=== PATIENT | female | born 1960 | race Caucasian/White ===

== ENCOUNTER 2020-11-25 13:59 | Emergency (ER) | payer OTHER, SELFPAY ==
[2020-11-25 14:11] VITALS: BP 140/76; PULSE 108; RESP 18; TEMP 36.7; O2SAT 98; BMI 22.1
--- NOTE | 2020-11-25 15:02 | XR_ITS ---
EXAMINATION: XR ribs BI min 4V w CXR1V XR shoulder RT min 2V CLINICAL INFORMATION: Patient status post fall with rib cage pain COMPARISON: Chest radiograph 02/01/[address] chest 02/04/2019. TECHNIQUE: PA chest and AP and oblique views of the bilateral ribs obtained (4 images). Right shoulder 3 views obtained. FINDINGS: CHEST AND RIBS: Acute right rib fractures are seen. These are difficult to accurately localize. The right ninth rib has a mildly displaced lateral rib fracture. Additionally, there appear to be fractures of the right sixth and seventh ribs laterally. No left-sided rib fractures are seen. An ill-defined hazy 2.5 cm nodular opacity is seen in the right mid lung suprahilar region which has a slightly different appearance than the prior chest radiograph 02/01/2019. Additionally, mild subsegmental atelectasis is seen at the right lung base. Trace right pleural effusion. No evidence of pneumothorax. The left lung is clear and the heart is not enlarged. RIGHT SHOULDER: Views of the right shoulder demonstrate degenerative changes in the acromioclavicular joint. The glenohumeral articulation is normal without additional findings. XR/XR ribs BI min 4V w CXR1V IMPRESSION: 1. Several mildly displaced right rib fractures are seen. No pneumothorax. Small right pleural effusion. 2. An ill-defined hazy 2.5 cm nodular opacity in the right mid to upper lung suprahilar region is identified with a slightly different configuration than the prior chest radiograph of 02/01/2019. An elective CT thorax is recommended to reassess this region to exclude underlying pulmonary lesion. 3. Unremarkable right shoulder. This result was discussed via telephone with Katie Klein NP by telephone at 3:53 PM on 11/25/2020 and it was ascertained that the content and urgency of the report was understood at the time of direct communication.
[2020-11-25 19:53] VITALS: BP 140/85; PULSE 91; RESP 16; TEMP 36.8; O2SAT 99
--- NOTE | 2020-11-25 21:48 | ED_ITS ---
HPI - Fall General Chief Complaint: Fall Stated Complaint: fell rib pain Time Seen by Provider: 11/25/20 15:02 Source: patient Mode of arrival: ambulatory Limitations: no limitations History of Present Illness HPI Narrative: Patient presents to ED for right-sided shoulder/lower chest/upper abdominal pain after falling earlier this afternoon. Patient denies hitting head or loss of consciousness. Patient states she tripped while pulling out the garbage and fell onto right side. Patient states he is not on any blood thinners. complaint: fall Related Data Allergies Allergy/AdvReac Type Severity Reaction Status Date / Time codeine [Codeine] Allergy Mild HIVES Verified 11/25/20 22:29 Codeine Phosphate Allergy Unknown vomiting Uncoded 09/30/19 00:00 Review of Systems Review of Systems: Yes all other systems are reviewed and are negative Constitutional: Constitutional: Reports as per HPI and Reports no additional c onstitutional complaints Eyes: Eyes: Reports as per HPI and Reports no additional eye complaints ENT: Reports system reviewed and no additional complaints, except as documented and Reports as per HPI Cardiovascular: Cardiovascular: Reports as per HPI and Reports no additional cardiovascular complaints Comments: Right-sided chest pain Respiratory: Respiratory: Reports as per HPI and Reports no additional respiratory complaints Gastrointestinal: Gastrointestinal: Reports as per HPI, Reports no additional gastrointestinal complaints and Reports abdominal pain (Right upper abdominal pain) Musculoskeletal: Musculoskeletal: Reports no additional musculoskeletal complaints and Reports as per HPI Comments: Right shoulder pain Neurologic: Reports system reviewed and no additional complaints, except as documented and Reports as per HPI Psychiatric: Psychiatric: Reports no additional psychiatric complaints and Reports as per HPI [facility] Social History Social History Alcohol intake: unknown Smoking Status: Unknown if ever smoked Use of substances other than those prescribed or required for medical reasons: No Advance Directives: No Physical Exam Vital Signs: Vital Signs: Last Vital Signs Temp 98.2 F 11/25/20 19:53 Pulse 83 11/25/20 22:05 Resp 109 H 11/25/20 22:05 BP 143/63 H 11/25/20 22:05 Pulse Ox 93 11/25/20 22:05 Body Mass Index 22.1 Const: General: cooperative, healthy appearing, comfortable, no acute distress, well developed, alert, awake and Physically active Orientation/consciousness: patient oriented x3 HENMT: Head: Yes normal to inspection, Yes No palpable skull fracture present, Yes normocephalic and Yes atraumatic Eyes: General: appearance normal, both eyes and all related structures Neck: Neck: Yes normal visual inspection, Yes full ROM, Yes no lymphadenopathy, Yes no meningeal signs, Yes trachea midline, Yes supple and No tender Chest: Other: Positive for right lower chest/rib tenderness on palpation. Chest palpation & inspection: normal inspection of the chest Resp: Other: Patient is speaking in full sentences, but not able to take deep breath due to pain Effort & Inspection: normal respiratory effort and able to speak in complete sentences Auscultation: clear to auscultation bilaterally Cardio: Jugular venous distension: no JVD Heart sounds: S1 normal heart sound present and S2 normal heart sound present GI: Inspection: Yes normal to inspection and No abdominal wall ecchymosis Palpation (GI): not soft, not firm, Tenderness to palpation present (GI) in the RUQ, no guarding and not rigid : General: No CVA tenderness and Yes no CVA tenderness Back/Spine/Pelvis: Back: no CVA tenderness and No CVA tenderness Skin: General skin exam: no rashes or lesions noted and elasticity normal Neuro: General: patient oriented x3, no meningeal signs and CN's II-XI intact bilaterally Cranial nerves: Yes CN's II-XII intact bilaterally Extrem: General: Yes normal to inspection and Yes full ROM Psych: Appearance: grossly normal, well kempt and not disheveled Course Course Course Narrative: Patient x-ray shows multiple right lower rib fractures. Patient O2 saturation is normal, but has significant discomfort and can not take a deep breath. Reevaluation(s) Reevaluation #1: Call [facility] transfer line immediately and spoke with trauma surgeon Dr. Cisneros who recommends patient to be immediately transferred to [facility] ER where they would further evaluate patient. He does not recommend further evaluation in [place] ER. Patient states she has no past allergic reaction to oxycodone and has taken it before in the past. Patient was given oxycodone, Benadryl, and Zofran. Time: 22:02 MDM - Fall MDM Narrative Medical decision making narrative: Multiple right lower rib fractures. Lab Data Labs: Lab Results 11/25/20 Range/Units 22:46 COVID-19 (LUCIANA) Negative (Negative) COVID-19 Clin Com See Note Discharge Plan Discharge Clinical Impression: Fracture, ribs Patient Disposition: [facility] Hospital Interventions: Acute Care Transfer Worksheet (ED) Last Done: 11/25/20 23:36 Discharge Date/Time: 11/25/20 23:38
[2020-11-25 22:05] VITALS: BP 143/63; PULSE 83; RESP 109; O2SAT 93
[2020-11-25] MEDS: oxyCODONE HCl Immed Release 5 MG TABLET PO (22:30)
[2020-11-25] MEDS: diphenhydrAMINE HCL 25 MG TABLET PO (22:42)
[2020-11-25 23:04] LABS: COVID-19 Test Negative (Negative); IDNOW Serial# 9DD0AD1C
--- NOTE | 2020-11-25 23:25 | PC.NURSE ---
Patient swabbed for covid which was neative and line in both anticub with 20g needles. Patient being transferred to [facility] with [facility]
== END 2020-11-25 23:38 | disposition short-term general hospital (02) ==
PROVIDERS: Physician Assistant; Emergency Provider Emergency Medicine; PCP Internal Medicine Medical Oncology
DX: S22.43XA Multiple fractures of ribs, bilateral, initial encounter for closed fracture (principal); R07.81 Pleurodynia; X58.XXXA Exposure to other specified factors, initial encounter; Y93.9 Activity, unspecified; Y92.9 Unspecified place or not applicable; Y99.9 Unspecified external cause status; Z20.828 Contact with and (suspected) exposure to other viral communicable diseases
CPT/HCPCS: 36415; 71111; 73030; 87635; 99285; Q0163

== ENCOUNTER 2020-12-25 12:54 | Outpatient (REF) | payer OTHER, SELFPAY ==
--- NOTE | ~2020-12-25 | PE_ITS ---
EXAMINATION: Fluorine-18 FDG PET/CT Scan CLINICAL INDICATION: Initial treatment management. 2.7 cm pulmonary nodule. PROCEDURE: 71 minutes following the intravenous administration of 14.8 mCi of fluorine 18 FDG, images from the base of the skull to the mid thighs were obtained using a combined PET/CT scanner with CT scan based attenuation correction. No oral contrast was administered. No intravenous contrast was administered. Transverse, coronal, sagittal, and volume reconstruction projections were obtained. The patient's blood glucose as determined by a finger stick, was 82 mg/dl immediately prior to injection. Total CT exam dose-length product 308.74 mGy-cm * These CT images were obtained using dose optimization techniques as appropriate, variously including the following: Automated exposure control * Adjustment of mA and/or kV according to patient size (this includes techniques or standardized protocols for targeted exams where dose is matched to indication/reason for exam; i.e. extremities or head) * Use of iterative reconstruction technique COMPARISON: No previous PET/CT scan is available for comparison. CT scan of the chest dated 02/04/[address] scan of the abdomen and pelvis dated 01/09/2009 are available for comparison. The report of a CT scan of the chest performed at [facility] dated 11/26/2020 is available but the images from that study are not available for review. FINDINGS: (Slice numbers described in this report are numbered superiorly to inferiorly with slice #1 in the head) NECK AND VISUALIZED HEAD: No foci of abnormal FDG activity are noted. The distribution of FDG activity is physiological. There is no cervical lymphadenopathy. There is mild and bilaterally fairly symmetrical FDG activity present in supraclavicular adipose tissues, likely due to physiological brown fat uptake. THORAX: There is an FDG avid right upper lobe pulmonary nodule showing SUVmax 9.1, slice 78/267. This corresponds to a spiculated opacity that measures 2.8 x 1.4 cm in largest transverse dimensions, and approximately 2.6 cm cephalocaudad. No other foci of abnormal FDG activity are present within the chest. Two adjacent anterolateral right upper lobe 0.3 cm right upper lobe nodules are present, too small to be characterized on the FDG PET images. There is a 0.8 x 0.6 cm anterolateral left upper lobe nodule, slice 96/267, also too small to be characterized on the FDG PET images. This is unchanged from 02/04/2019. No additional pulmonary nodules are visualized on these nondiagnostic CT images. No other pulmonary nodules are visualized. There is no pleural or pericardial fluid, or pneumothorax. There is some scarring or atelectasis in the lung bases bilaterally, more prominently on the right. ABDOMEN AND PELVIS: No foci of abnormal FDG activity are present in the abdomen or pelvis. The liver, gallbladder and spleen are unremarkable. There is a fluid density cyst measuring 5.3 cm in largest dimension anteriorly in the lower pole of the left kidney and this is markedly photopenic on the FDG PET images. This cyst was not present on the prior 01/09/2009 CT scan. The kidneys are otherwise unremarkable. The adrenal glands and pancreas are unremarkable. There is diverticulosis without evidence of diverticulitis. There are suture lines are present in the rectosigmoid colon and small bowel loops in the presacral region with no associated abnormal FDG activity. Uterine fibroids with some calcifications are noted. The pelvic organs are otherwise unremarkable. There is no retroperitoneal, mesenteric, pelvic or inguinal lymphadenopathy. MUSCULOSKELETAL: Multiple FDG avid right-sided rib fractures are present. No other foci of abnormal FDG activity are present in the osseous structures. There are degenerative changes in the spine, most severely at the L4-L5 disc space but no suspicious sclerotic or lytic lesions are visualized. VASCULAR: Vascular calcifications are noted. PET/PET CT fusion skull to thigh IMPRESSION: 1. An FDG avid spiculated right upper lobe pulmonary nodule is most likely malignant. 2. Multiple FDG avid right-sided rib fractures are present. 3. No additional abnormalities suspicious for metastatic or other malignant lesions are noted. 4. Large hypodense left renal cyst.
== END 2020-12-25 12:55 | disposition home or self-care (01) ==
LOC: HO.PET 12:54
PROVIDERS: Visit Provider Internal Medicine Medical Oncology
DX: Z13.89 Encounter for screening for other disorder (principal)

== ENCOUNTER → 2020-12-28 10:42 | Outpatient (BNVA) | payer OTHER, SELFPAY | PROVIDERS: PCP Internal Medicine Medical Oncology; Visit Provider Surgery | DX: Z13.89 Encounter for screening for other disorder (principal) | CPT/HCPCS: 99205 ==

== ENCOUNTER 2021-01-01 14:56 | Outpatient (REF) | payer OTHER, SELFPAY | END 2021-01-01 14:57 | disposition home or self-care (01) | LOC: HO.RESP 14:56 | PROVIDERS: Visit Provider Surgery | DX: Z13.89 Encounter for screening for other disorder (principal) ==

== ENCOUNTER 2021-02-06 14:14 | Outpatient (REF) | payer OTHER, SELFPAY | END 2021-02-06 14:15 | disposition home or self-care (01) | LOC: HO.LAB 14:14 | PROVIDERS: Visit Provider Internal Medicine | DX: Z20.822 Contact with and (suspected) exposure to COVID-19 (principal) | CPT/HCPCS: 36415; C9803; U0003; U0005 ==

== ENCOUNTER 2021-07-19 12:06 | Emergency (ER) | payer OTHER, SELFPAY ==
--- NOTE | ~2021-07-19 | CT_ITS ---
EXAMINATION: CT ABDOMEN AND PELVIS WITH CONTRAST CLINICAL INFORMATION: Right flank pain COMPARISON: Previous abdominal ultrasound September [address] of the abdomen and pelvis most recent December 2008 and PET/CT scan December 2020 TECHNIQUE: Multidetector volumetric images were obtained from the superior aspect of the liver through the pubic symphysis following administration 85 mL of Omnipaque 350 intravenous contrast. Sagittal and coronal reformatted images were obtained on the technologist's workstation. Oral contrast: Yes This CT examination was performed using dose optimization techniques as appropriate, variously including the following: *Automated exposure control *Adjustment of mA and/or kV according to patient size (this includes techniques or standardized protocols for targeted exams where dose is matched to indication/reason for exam; i.e. extremities or head) *Use of iterative reconstruction technique DLP: 514 mGy-cm FINDINGS: LUNG BASES: The visualized lung bases are unremarkable. LIVER, GALLBLADDER, AND BILIARY TREE: There may be mild cirrhotic changes of the liver. There is a small central calcification in the liver. No other focal liver lesion is seen. The gallbladder is normal. There is no biliary duct dilatation. PANCREAS: Unremarkable. SPLEEN: Unremarkable. ADRENAL GLANDS: Unremarkable. KIDNEYS AND URETERS: A 6 cm cyst in the upper pole of the left kidney. The kidneys are otherwise normal. BLADDER: Unremarkable. GASTROINTESTINAL TRACT: There are postsurgical changes to the sigmoid colon. There is diverticulosis of the colon. No evidence of diverticulitis is seen. There is an atypical location of a small bowel loops lateral to the left colon. No dilated loops of bowel to suggest obstruction are seen. The appendix is normal. The stomach is not optimally distended. ABDOMINAL WALL: No significant hernia is appreciated. LYMPH NODES: Normal. VASCULAR: There is evidence of atherosclerotic disease. PELVIC VISCERA: Unremarkable. OSSEOUS STRUCTURES: There is a recent appearing left posterior 11th rib fracture. This is new from PET/CT scan December 2020. There is an old partially visualized right posterior ninth rib fracture. There are degenerative changes of the spine. CT/CT abdomen pelvis w con IMPRESSION: No cause of right flank pain seen. Question mild cirrhotic changes of the liver. 6 cm left renal cyst. Diverticulosis of the colon. Postsurgical changes to the sigmoid colon. Recent appearing left posterior 11th rib fracture.
[2021-07-19 12:08] VITALS: BP 149/74; PULSE 114; RESP 22; TEMP 36.6; O2SAT 97; BMI 23.0
[2021-07-19 12:37] LABS: MANUAL DIFF FLAG NO
[2021-07-19 12:43] LABS: Basophils Absolute Auto 0.1 X10*3/uL (0.0-0.2); Basophils Percent Auto 0.8 % (0-2); Eosinophils Absolute Auto 0.1 X10*3/uL (0.0-0.4); Eosinophils Percent Auto 1.1 % (0-4); Hematocrit 46.2 % (37-47); Hemoglobin 16.1 g/dl (12.0-16.0); Imm Gran Abs Auto 0.03 X10*3/uL (0.00-0.03); Imm Gran Pct Auto 0.3 % (0.0-0.4); Lymphocytes Absolute Auto 4.3 X10*3/uL (1.2-4.9); Lymphocytes Percent Auto 42.1 % (20-40); Mean Corpuscular HGB Conc 34.8 g/dl (31.0-35.0); Mean Corpuscular Hemoglobin 36.6 pg (27.0-33.0); Mean Platelet Volume 9.6 fL (9.4-12.3); Monocytes Absolute Auto 0.8 X10*3/uL (0.1-1.2); Monocytes Percent Auto 7.6 % (2-11); Neutrophils Absolute Auto 4.9 X10*3/uL (2.0-8.3); Neutrophils Percent Auto 48.1 % (45-73); Platelet Count 154 X10*3/uL (160-400); Red Cell Distribution Width 11.8 % (11.0-16.0); White Blood Count 10.1 X10*3/uL (4.8-10.8)
--- NOTE | 2021-07-19 12:43 | ED.ABDPAIN ---
HPI - Abdominal Pain General Chief Complaint: Abdominal Pain Stated Complaint: R SIDED ABD PAIN Time Seen by Provider: 07/19/21 12:20 Source: patient Mode of arrival: ambulatory History of Present Illness HPI narrative: 61-year-old female with history of COPD presents with acute onset of sharp/burning pain at the right flank/lower quadrant without associated vomiting, fevers, chills but has had nausea and patient reports a few episodes of diarrhea. Otherwise, she denies any urinary pain/burning/frequency. Related Data Previous Rx's Medication Instructions Recorded pantoprazole 40 mg tablet,delayed 40 mg PO DAILY #30 cap 02/22/21 release cephalexin 500 mg capsule 500 mg PO Q12H 5 Days #10 cap 07/19/21 Allergies Allergy/AdvReac Type Severity Reaction Status Date / Time codeine [Codeine] Allergy Mild HIVES Verified 12/28/20 10:50 Codeine Phosphate Allergy Unknown vomiting Uncoded 09/30/19 00:00 Review of Systems Review of Systems Pertinent positives and negatives as stated in HPI 10 point review of systems otherwise negative. Physical Exam Vital Signs: Vital Signs: Last Vital Signs Temp 97.9 F 07/19/21 12:08 Pulse 94 07/19/21 13:41 Resp 16 07/19/21 13:41 BP 139/76 07/19/21 13:41 Pulse Ox 94 07/19/21 13:41 Body Mass Index 23.0 VITAL SIGNS: Reviewed. GENERAL: Well developed, well nourished, in no acute distress. HEAD: Normocephalic/atraumatic EYES: PERRLA, EOMI OROPHARYNX: no oral lesions noted, posterior pharynx clear LUNGS: Normal breath sounds. No adventitious sounds or accessory muscle use. SpO2<94> CARDIOVASCULAR: Regular rate and rhythm without noted murmurs ABDOMEN: Soft, non-tender, non-distended with bowel sounds. NEUROLOGIC: Alert and oriented x 4. Course Course Course Narrative: 61-year-old female with history and clinical presentation suggestive renal colic, gastroenteritis, UTI. On review of all investigations there are no acute findings other than patient having UTI. She received a script for implementing antibiotics and was instructed to follow up with the primary care provider. MDM - Abdominal Pain Lab Data Result diagrams: 07/19/21 12:33 07/19/21 12:33 Labs: Lab Results 09/02/0307/19/21 07/19/21 Range/Units 12:33 12:33 12:33 WBC 10.1 (4.8-10.8) X10*3/uL RBC 4.40 (4.20-5.50) X10*6/uL Hgb 16.1 H (12.0-16.0) g/dl Hct 46.2 (37-47) % MCV 105.0 H (80-98) fL MCH 36.6 H (27.0-33.0) pg MCHC 34.8 (31.0-35.0) g/dl RDW 11.8 (11.0-16.0) % Plt Count 154 L (160-400) X10*3/uL MPV 9.6 (9.4-12.3) fL Immature Gran % (Auto) 0.3 (0.0-0.4) % Neut % (Auto) 48.1 (45-73) % Lymph % (Auto) 42.1 H (20-40) % [place] % (Auto) 7.6 (2-11) % Eos % (Auto) 1.1 (0-4) % Baso % (Auto) 0.8 (0-2) % Lymph # (Auto) 4.3 (1.2-4.9) X10*3/uL [place] # (Auto) 0.8 (0.1-1.2) X10*3/uL Eos # (Auto) 0.1 (0.0-0.4) X10*3/uL Baso # (Auto) 0.1 (0.0-0.2) X10*3/uL Abs Immat Gran (auto) 0.03 (0.00-0.03) X10*3/uL Absolute Neuts (auto) 4.9 (2.0-8.3) X10*3/uL Absolute Nucleated RBC 0.000 (0.0-0.012) X10*3/uL Nucleated RBC % (auto) 0.0 (0.0-0.2) /100WBC Sodium 140 (135-145) mmol/L Potassium 3.9 (3.3-5.1) mmol/L Chloride 104 (96-108) mmol/L Carbon Dioxide 27 (22-29) mmol/L Anion Gap 13 (12-20) BUN 8 L (9-16) mg/dL Creatinine 0.69 (0.5-1.4) mg/dL Estim Creat Clear Calc 89.4 Estimated GFR > 60 Random Glucose 93 (60-115) mg/dL Lactic Acid 1.1 (0.5-2.0) mmol/L Calcium 10.0 (8.4-10.2) mg/dL Total Bilirubin 0.7 (0.0-1.0) mg/dL AST 36 H (5-31) U/L ALT 23 (0-31) U/L Alkaline Phosphatase 87 (39-117) U/L Total Protein 7.2 (6.5-8.0) g/dL Albumin 4.6 (3.5-5.0) g/dL Lipase 22 (8-78) U/L Urine Color Urine Appearance Urine pH (5.0-8.0) Ur Specific [place] (1.005-1.025) Urine Protein (NEG-TRACE) MG/DL Urine Glucose (UA) (NEG) MG/DL Urine Ketones (NEG) MG/DL Urine Blood (NEG) Urine Nitrite (NEG) Ur Leukocyte Esterase (NEG) Urine RBC (0) /HPF Urine WBC (0-4) /HPF Ur Squamous Epith Cells /LPF Urine Bacteria /LPF 07/19/21 Range/Units 13:00 WBC (4.8-10.8) X10*3/uL RBC (4.20-5.50) X10*6/uL Hgb (12.0-16.0) g/dl Hct (37-47) % MCV (80-98) fL MCH (27.0-33.0) pg MCHC (31.0-35.0) g/dl RDW (11.0-16.0) % Plt Count (160-400) X10*3/uL MPV (9.4-12.3) fL Immature Gran % (Auto) (0.0-0.4) % Neut % (Auto) (45-73) % Lymph % (Auto) (20-40) % [place] % (Auto) (2-11) % Eos % (Auto) (0-4) % Baso % (Auto) (0-2) % Lymph # (Auto) (1.2-4.9) X10*3/uL [place] # (Auto) (0.1-1.2) X10*3/uL Eos # (Auto) (0.0-0.4) X10*3/uL Baso # (Auto) (0.0-0.2) X10*3/uL Abs Immat Gran (auto) (0.00-0.03) X10*3/uL Absolute Neuts (auto) (2.0-8.3) X10*3/uL Absolute Nucleated RBC (0.0-0.012) X10*3/uL Nucleated RBC % (auto) (0.0-0.2) /100WBC Sodium (135-145) mmol/L Potassium (3.3-5.1) mmol/L Chloride (96-108) mmol/L Carbon Dioxide (22-29) mmol/L Anion Gap (12-20) BUN (9-16) mg/dL Creatinine (0.5-1.4) mg/dL Estim Creat Clear Calc Estimated GFR Random Glucose (60-115) mg/dL Lactic Acid (0.5-2.0) mmol/L Calcium (8.4-10.2) mg/dL Total Bilirubin (0.0-1.0) mg/dL AST (5-31) U/L ALT (0-31) U/L Alkaline Phosphatase (39-117) U/L Total Protein (6.5-8.0) g/dL Albumin (3.5-5.0) g/dL Lipase (8-78) U/L Urine Color YELLOW Urine Appearance HAZY Urine pH 6.0 (5.0-8.0) Ur Specific [place] 1.025 (1.005-1.025) Urine Protein NEG (NEG-TRACE) MG/DL Urine Glucose (UA) NEG (NEG) MG/DL Urine Ketones NEG (NEG) MG/DL Urine Blood NEG (NEG) Urine Nitrite NEG (NEG) Ur Leukocyte Esterase TRACE H (NEG) Urine RBC 0-2 (0) /HPF Urine WBC 5-9 H (0-4) /HPF Ur Squamous Epith Cells TRACE /LPF Urine Bacteria TRACE /LPF Discharge Plan Discharge Clinical Impression: UTI (urinary tract infection), Left rib fracture Patient Disposition: Home, Self-Care Instructions: Urinary Tract Infection in Women (ED) Additional Instructions: 1. Complete the entire course of antibiotics. 2. Follow-up with your primary care provider in the next 2-3 days for re-evaluation. Return to the ER for acute worsening of symptoms. Prescriptions: New cephalexin 500 mg capsule 500 mg PO Q12H 5 Days Qty: 10 RF: 0 No Action pantoprazole 40 mg tablet,delayed release (DR/EC) 40 mg PO DAILY Qty: 30 RF: 5 Referrals: Sonido Mcdaniels MD [Primary Care Provider] - 2 days PMF Past Medical History Source: nursing notes reviewed Medical History Lung cancer Social History Social History Alcohol intake: current Alcohol intake frequency: 0-2 drinks per day Patient Tobacco Use Status: Current everyday Tobacco user Use of substances other than those prescribed or required for medical reasons: No Advance Directives: Yes Advance Directives Information Provided: Yes Advance Directives on File: No Patient : No
[2021-07-19 12:57] LABS: Lactic Acid 1.1 mmol/L (0.5-2.0)
[2021-07-19 13:05] LABS: Alanine Aminotransferase 23 U/L (0-31); Albumin Level 4.6 g/dL (3.5-5.0); Alkaline Phosphatase 87 U/L (39-117); Anion Gap 13 (12-20); Aspartate Amino Transferase 36 U/L (5-31); Bilirubin Total 0.7 mg/dL (0.0-1.0); Blood Urea Nitrogen 8 mg/dL (9-16); Carbon Dioxide 27 mmol/L (22-29); Chloride 104 mmol/L (96-108); Creatinine Clr Calc Pharmacy 89.4; Estimated Glomerular Filt Rate > 60; Glucose Random 93 mg/dL (60-115); Lipase 22 U/L (8-78); Potassium 3.9 mmol/L (3.3-5.1); Sodium 140 mmol/L (135-145); Total Protein 7.2 g/dL (6.5-8.0)
[2021-07-19 13:19] LABS: Glucose Urine UA NEG (NEG); Leukocyte Esterase Urine TRACE (NEG); Nitrite Urine NEG (NEG); Specific Gravity - Urine 1.025 (1.005-1.025); UACC Culture Trigger YES; Urine Blood NEG (NEG); Urine Ketones NEG (NEG); Urine Protein NEG (NEG-TRACE)
[2021-07-19 13:23] LABS: Appearance Urine HAZY; Color Urine YELLOW
[2021-07-19 13:41] VITALS: BP 139/76; PULSE 94; RESP 16; O2SAT 94
[2021-07-19 13:46] LABS: Bacteria Urine TRACE /LPF; RBC Urine 0-2 /HPF (0); Squamous Epithelial Cell Urine TRACE /LPF
[2021-07-19] MEDS: iohexoL 350 MG/ML 100 ML INFUS..BTL IV (13:59)
== END 2021-07-19 15:19 | disposition home or self-care (01) ==
PROVIDERS: Emergency Provider Student in an Organized Health Care Education/Training Program; PCP Internal Medicine Medical Oncology
DX: N39.0 Urinary tract infection, site not specified (principal); S22.32XA Fracture of one rib, left side, initial encounter for closed fracture; X58.XXXA Exposure to other specified factors, initial encounter; R10.9 Unspecified abdominal pain; J44.9 Chronic obstructive pulmonary disease, unspecified; F17.210 Nicotine dependence, cigarettes, uncomplicated; Y93.9 Activity, unspecified; Y92.9 Unspecified place or not applicable; Y99.9 Unspecified external cause status; Z85.118 Personal history of other malignant neoplasm of bronchus and lung
CPT/HCPCS: 36415; 74177; 80053; 81001; 83605; 83690; 85025; 87040; 87086; 99284; Q9967

== ENCOUNTER 2021-08-07 10:33 | Outpatient (REF) | payer OTHER, SELFPAY ==
--- NOTE | ~2021-08-07 | CT_ITS ---
EXAMINATION: CT CHEST WITHOUT CONTRAST CLINICAL INFORMATION: COPD. COMPARISON: Previous chest CT scans most recent January 2021 TECHNIQUE: Multidetector volumetric CT imaging of the chest was done. Axial MIP volume rendering provided. Sagittal and coronal reformatted images were obtained. This CT examination was performed using dose optimization techniques as appropriate, variously including the following: *Automated exposure control *Adjustment of mA and/or kV according to patient size (this includes techniques or standardized protocols for targeted exams where dose is matched to indication/reason for exam; i.e. extremities or head) *Use of iterative reconstruction technique DLP: 142 mGy-cm FINDINGS: LUNGS: There is evidence of emphysema. There are postsurgical changes following right upper lobe lobectomy. There is a 7 x 10 mm left upper lobe/lingular nodule axial image 118 series 6. This has increased in size from approximately 6 x 8 mm on previous PET/CT scan December 2020 and increased in size and density from previous chest CT scan January 2019. There is a heterogeneous partially cystic, partially reticular right lower lobe nodule axial image 119 series 6. MEDIASTINUM: There are postsurgical changes to the right pulmonary hilum. No enlarged hilar or mediastinal lymph nodes are seen. The heart does not appear enlarged. There is no pericardial effusion. There is no coronary artery calcification. The thoracic aorta is upper normal in size. PLEURA: There is no pleural effusion. No pleural mass or thickening. AXILLA: No lymphadenopathy. UPPER ABDOMEN: There is question of mild cirrhotic change of the liver. There are small calcifications in the right and left lobes of the liver. There is a 6 cm cyst in the upper pole of the left kidney. OSSEOUS STRUCTURES: There is a recent-appearing left posterior 11th rib fracture. There are old right rib fractures. CT/CT chest wo con IMPRESSION: Postsurgical changes from right upper lobe lobectomy. Increasing lingular nodule measuring 7 x 10 mm suspicious for neoplasm. New 1 cm heterogeneous partially cystic, partially reticular peripheral or subpleural right lower lobe nodule. Recent-appearing left posterior 11th rib fracture. Question mild cirrhotic changes of the liver. Findings will be communicated by the [place] work flow geospatial imagery intelligence analyst Nazanin Mcginnis.
== END 2021-08-07 10:34 | disposition home or self-care (01) ==
LOC: HO.CT 10:33
PROVIDERS: Visit Provider Physician Assistant Medical
DX: R91.8 Other nonspecific abnormal finding of lung field (principal); J44.9 Chronic obstructive pulmonary disease, unspecified
CPT/HCPCS: 71250

== ENCOUNTER → 2021-08-30 10:18 | Outpatient (BNVA) | payer OTHER, SELFPAY | PROVIDERS: PCP Internal Medicine Medical Oncology; Visit Provider Surgery | DX: J44.9 Chronic obstructive pulmonary disease, unspecified (principal); C34.11 Malignant neoplasm of upper lobe, right bronchus or lung; R91.1 Solitary pulmonary nodule; F17.210 Nicotine dependence, cigarettes, uncomplicated; Z79.899 Other long term (current) drug therapy; Z90.2 Acquired absence of lung [part of] | CPT/HCPCS: 99212 ==

== ENCOUNTER → 2021-11-04 14:20 | Outpatient (BNVA) | payer OTHER, SELFPAY | PROVIDERS: PCP Internal Medicine Medical Oncology; Visit Provider Internal Medicine Gastroenterology ==

== ENCOUNTER 2022-04-23 09:48 | Outpatient (REF) | payer OTHER, SELFPAY ==
--- NOTE | ~2022-04-23 | CT_ITS ---
EXAMINATION: CT CHEST WITHOUT CONTRAST CLINICAL INFORMATION: Right upper lobe lung cancer COMPARISON: Previous chest CT most recent July 2021 TECHNIQUE: Multidetector volumetric CT imaging of the chest was done. Axial MIP volume rendering provided. Sagittal and coronal reformatted images were obtained. This CT examination was performed using dose optimization techniques as appropriate, variously including the following: *Automated exposure control *Adjustment of mA and/or kV according to patient size (this includes techniques or standardized protocols for targeted exams where dose is matched to indication/reason for exam; i.e. 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 There are stable postsurgical changes to the right hemithorax post right upper lobe lobectomy. The irregularly-shaped solid left upper lobe nodule 5 x 8 mm axial image 351 series 7 and not appreciably changed in size.. The heterogeneous partially groundglass partially cystic nodule in the left upper lobe adjacent to the fissure axial 282 series 7 is stable. There are innumerable new scattered groundglass attenuation nodules throughout both lungs. The largest is a 7 mm heterogeneous nodule in the left upper lobe axial image 275 series 7. MEDIASTINUM: There are surgical clips in the right hilum. The heart does not appear enlarged. There is no pericardial effusion. Thoracic aorta is upper normal in size. There is no coronary artery calcification. PLEURA: There is no pleural effusion. No pleural mass or thickening. AXILLA: No lymphadenopathy. UPPER ABDOMEN: There is question of a slightly lobular contour of the left lobe of the liver. There is a large left renal cyst measuring 7 cm. OSSEOUS STRUCTURES: There are degenerative changes of the spine. CT/CT chest wo con IMPRESSION: Emphysema. Stable postsurgical changes following right upper lobe lobectomy. Stable solid left upper lobe nodule and heterogeneous partially groundglass partially cystic nodule in the left upper lobe adjacent to the fissure. There are numerous new predominantly groundglass attenuation nodules seen throughout the lungs. Short-term follow-up chest CT following treatment for infection is recommended. Fleischner guidelines were followed.
== END 2022-04-23 09:49 | disposition home or self-care (01) ==
LOC: HO.CT 09:48
PROVIDERS: PCP Internal Medicine Medical Oncology; Visit Provider Surgery
DX: C34.11 Malignant neoplasm of upper lobe, right bronchus or lung (principal)
CPT/HCPCS: 71250

== ENCOUNTER → 2022-05-02 10:01 | Outpatient (BNVA) | payer OTHER, SELFPAY | PROVIDERS: PCP Internal Medicine Medical Oncology; Visit Provider Surgery | DX: C34.11 Malignant neoplasm of upper lobe, right bronchus or lung (principal); R91.1 Solitary pulmonary nodule; F17.210 Nicotine dependence, cigarettes, uncomplicated | CPT/HCPCS: 99212 ==

== ENCOUNTER 2022-05-09 13:50 | Outpatient (REF) | payer OTHER, SELFPAY ==
--- NOTE | 2022-05-09 15:20 | PFT_ITS ---
Forced vital capacity 84%, FEV1 64%. FEV1/FVC ratio is 59. [id number] 31% and MVV 59%. Post bronchodilator therapy, there is a slight improvement in FEV1 and [id number]. Total lung capacity 82%, residual volume 73% and diffusion capacity is 32%. CONCLUSION: Moderately severe obstructive airway disorder. Slight improvement after bronchodilator therapy is noted. Clinical correlation is recommended. MD JESSICA Morales/GARCIA / [id number]
== END 2022-05-09 13:51 | disposition home or self-care (01) ==
LOC: HO.RESP 13:50
PROVIDERS: PCP Internal Medicine Medical Oncology; Visit Provider Surgery
DX: R91.1 Solitary pulmonary nodule (principal)
CPT/HCPCS: 94060; 94727; 94729

== ENCOUNTER 2022-07-01 12:41 | Outpatient (REF) | payer OTHER, SELFPAY ==
--- NOTE | ~2022-07-01 | PE_ITS ---
EXAMINATION: Fluorine-18 FDG PET/CT Scan CLINICAL INDICATION: Subsequent treatment management. Non-small cell lung cancer status post left upper lobectomy, restaging. PROCEDURE: 59 minutes following the intravenous administration of 16.8 mCi of fluorine 18 FDG, images from the base of the skull to the mid thighs were obtained using a combined PET/CT scanner with CT scan based attenuation correction. No oral contrast was administered. No intravenous contrast was administered. Transverse, coronal, sagittal, and volume reconstruction projections were obtained. The patient's blood glucose as determined by a finger stick, was 102 mg/dl immediately prior to injection. Total CT exam dose-length product 368.62 mGy-cm * These CT images were obtained using dose optimization techniques as appropriate, variously including the following: Automated exposure control * Adjustment of mA and/or kV according to patient size (this includes techniques or standardized protocols for targeted exams where dose is matched to indication/reason for exam; i.e. extremities or head) * Use of iterative reconstruction technique COMPARISON: The previous PET CT scan dated 12/25/2020 is available for comparison. CT scans of the chest dated 04/23/2022 and of the abdomen and pelvis dated 07/19/2021 are available for comparison. FINDINGS: (Slice numbers described in this report are numbered superiorly to inferiorly with slice #1 in the head) NECK AND VISUALIZED HEAD: No foci of abnormal FDG activity are noted. The distribution of FDG activity is physiological. There is no cervical lymphadenopathy. THORAX: The patient is status post right upper lobectomy. Intensely FDG avid right upper lobe pulmonary nodule present on the prior 12/25/2020 PET/CT scan has been resected. The patient is also status post partial left upper lobectomy, performed since the most recent CT scan of the chest dated 04/23/2022.There is mild FDG activity associated with soft tissue densities in the mid residual left upper lobe associated with scarring or atelectasis that extends medially to the hilum. The FDG activity is predominantly the lateral aspect of these densities in the mid residual left upper lobe, showing SUVmax 2.1, slice 91/267. There are foci of mildly increased FDG activity associated with postoperative changes in the anterolateral aspect of the left seventh and lateral aspect of the left eighth ribs. Weak FDG activity is associated with an old healed right posterolateral ninth rib fracture. There are no additional foci of abnormal FDG activity in the chest. There is scarring in the right lung apex with no associated abnormal FDG activity. There is no pleural or pericardial fluid, or pneumothorax. There is no mediastinal, supraclavicular, or axillary lymphadenopathy. ABDOMEN AND PELVIS: No foci of abnormal FDG activity are present in the abdomen or pelvis. The liver, gallbladder and spleen are unremarkable. There is a fluid density cyst measuring 5.3 cm in largest dimension anteriorly in the lower pole of the left kidney and this is markedly photopenic on the FDG PET images, unchanged from the 12/25/[address] scan.. The kidneys are otherwise unremarkable. The adrenal glands and pancreas are unremarkable. There is diverticulosis without evidence of diverticulitis. There are suture lines are present in the rectosigmoid colon and small bowel loops in the presacral region with no associated abnormal FDG activity. Uterine fibroids with some calcifications are noted. The pelvic organs are otherwise unremarkable. There is no retroperitoneal, mesenteric, pelvic or inguinal lymphadenopathy. MUSCULOSKELETAL: There are degenerative changes in the spine but no suspicious sclerotic or lytic lesions are present. Other than the rib lesions described above, Are no postoperative changes are noted in the additional foci of abnormal FDG activity in the osseous structures. Multiple right-sided FDG avid rib fractures present on the prior 12/25/[address] scan have resolved VASCULAR: Vascular calcifications are noted. PET/PET CT fusion skull to thigh IMPRESSION: 1. The intensely FDG avid right upper lobe pulmonary nodule has been resected since its visualization on the prior 12/25/[address] scan. 2. Postsurgical changes from a recently performed partial left upper lobectomy are evident, associated with mild FDG activity that likely represents postoperative inflammatory changes. 3. Mild FDG activity associated with postoperative changes in the left rib cage is present, as described above. 4. FDG activity associated with multiple right-sided rib fractures visualized on the 12/25/[address] scan has resolved. 5. There are no additional abnormalities suspicious for metastatic or other malignant lesions.
== END 2022-07-01 12:42 | disposition home or self-care (01) ==
LOC: HO.PET 12:41
PROVIDERS: Visit Provider Surgery
DX: Z13.89 Encounter for screening for other disorder (principal)

== ENCOUNTER → 2022-07-11 11:01 | Outpatient (BNVA) | payer OTHER, SELFPAY | PROVIDERS: PCP Internal Medicine Medical Oncology; Visit Provider Surgery | DX: C34.11 Malignant neoplasm of upper lobe, right bronchus or lung (principal); C34.12 Malignant neoplasm of upper lobe, left bronchus or lung | CPT/HCPCS: 99212 ==

== ENCOUNTER 2022-07-23 13:38 | Outpatient (REF) | payer OTHER, SELFPAY ==
--- NOTE | ~2022-07-23 | MR_ITS ---
EXAMINATION: MR BRAIN WITHOUT AND WITH CONTRAST CLINICAL INFORMATION: Malignant neoplasm of the left upper lobe. COMPARISON: FDG PET/CT scan 07/01/2022 and 12/25/2020. TECHNIQUE: Multiplanar MR imaging of the brain was performed without and with contrast. A total of 6.5 mL Gadavist was utilized for this examination. FINDINGS: Postcontrast images reveal no abnormal intracranial mass or enhancement. There is no intracranial mass effect or midline shift. Lateral and third ventricles are normal. No hydrocephalus. Midline structures including the cervicomedullary junction are normal. No acute bone marrow signal changes. There are a few scattered nonspecific foci of T2 FLAIR signal hyperintensity within the supratentorial white matter. No acute territorial infarct. No pathological magnetic susceptibility artifact. Intracranial vascular flow voids are grossly maintained. There is no mastoid or middle ear effusion. Mild paranasal sinus disease primarily affecting the ethmoid air cells. Globes and orbits are symmetric. There is a nonspecific lesion involving the right frontal bone near the coronal suture that demonstrates fluid signal characteristics and no appreciable enhancement best depicted on axial image 24 of 25 series 9. MR/MR head/brain wo/w con IMPRESSION: There is a nonspecific lesion within the right frontal bone near the coronal suture. 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 Comparison with prior imaging is recommended if available. Otherwise a dedicated CT scan of the head can be obtained for better anatomic characterization. No worrisome mass or enhancement is visualized elsewhere within the intracranial compartment.
== END 2022-07-23 13:39 | disposition home or self-care (01) ==
LOC: HO.MRI 13:38
PROVIDERS: Visit Provider Surgery
DX: C34.12 Malignant neoplasm of upper lobe, left bronchus or lung (principal); C79.31 Secondary malignant neoplasm of brain
CPT/HCPCS: 70553; A9585

== ENCOUNTER → 2022-08-08 11:17 | Day surgery (SDC) | payer OTHER, SELFPAY ==
--- NOTE | 2022-08-07 13:21 | P.CONAN_ITS ---
HPI - Anesthesia Eval Consult details Narrative: 62yo F for Endoscopic Bronchial Ultrasound, Bronchoscopy Mediastinoscopy possible s/p BALA wedge resection 05/2022 at [facility] Active Problems Active Problems: All Active Problems (Updated 07/15/22 @ 10:32 by Arianna Patrick RN) Pulmonary nodule (Acute) Cancer of upper lobe of left lung (Acute) COPD (chronic obstructive pulmonary disease) (Acute) Smoker (Acute) Primary malignant neoplasm of right upper lobe of lung (Acute ~2020) Past Medical History Medical History (Updated 07/15/22 @ 10:32 by Arianna Patrick RN) Carcinoma of lung COPD (chronic obstructive pulmonary disease) History of hepatitis C Hyperplastic colon polyp Osteopenia Primary malignant neoplasm of right upper lobe of lung (~2020) Smoker Family History Family History Mother Cancer Father Cancer Paternal Grandmother Cancer HTN (hypertension) Surgical History Surgical History (Updated 07/15/22 @ 10:31 by Arianna Patrick RN) History of colonoscopy History of esophagogastroduodenoscopy (EGD) History of lobectomy of lung (~01/2021) History of lobectomy of lung History of resection of large bowel (~01/2009) Social History Social History Alcohol intake: current Alcohol intake frequency: 0-2 drinks per day Patient Tobacco Use Status: Current everyday Tobacco user Tobacco use type: Cigarette Cigarette Packs Per Day: 1 Years Smoked: 41 years (onset age 20, 1ppd x 41yrs, 40+pyh) Meds Allergies Allergy/AdvReac Type Severity Reaction Status Date / Time codeine [Codeine] Allergy Mild hives/vomit Verified 07/15/22 10:30 ing Exam Exam Date and Time: August 07, 2022 1321 Assessment and Plan Assessment Anesthesia Assessment: Chart Reviewed
[2022-08-08 11:55] VITALS: BMI 21.5
--- NOTE | 2022-08-08 11:55 | MHC.SHP ---
Pre-Procedural Eval Section A Date of Service: 08/08/22 The patient is an INPATIENT: No Section B Chief Complaint: neoplasm upper lobe Allergies: Allergies Allergy/AdvReac Type Severity Reaction Status Date / Time codeine [Codeine] Allergy Mild hives/vomit Verified 08/08/22 11:52 ing Plan I have reviewed the history and physical and performed a pertinent physical examination on my patient. No changes have occurred unless specified.
[2022-08-08 12:19] VITALS: BP 143/81; PULSE 102; RESP 18; TEMP 36.8; O2SAT 96
[2022-08-08] MEDS: Lactated Ringers 1,000 ML 100 ML IVCONT (12:21)
--- NOTE | 2022-08-08 13:12 | HO.ANESPROP2 ---
COUNT INCLUDES THE [facility] Active Problems Active Problems: All Active Problems (Updated 08/08/22 @ 11:47 by Aga Pichardo RN) Pulmonary nodule (Acute) Cancer of upper lobe of left lung (Acute) COPD (chronic obstructive pulmonary disease) (Acute) Smoker (Acute) Primary malignant neoplasm of right upper lobe of lung (Acute ~2020) Past Medical History Medical History Carcinoma of lung COPD (chronic obstructive pulmonary disease) History of hepatitis C Hyperplastic colon polyp Osteopenia Primary malignant neoplasm of right upper lobe of lung (~2020) Smoker Family History Family History Mother Cancer Father Cancer Paternal Grandmother Cancer HTN (hypertension) Family history of problems with anesthesia: No Surgical History Surgical History History of colonoscopy History of esophagogastroduodenoscopy (EGD) History of lobectomy of lung (~01/2021) History of lobectomy of lung History of resection of large bowel (~01/2009) History of Problems with Anesthesia: No Social History Social History Alcohol intake: current Alcohol intake frequency: 0-2 drinks per day Patient Tobacco Use Status: Former Tobacco user Quit Date: 05/2022 Tobacco use type: Cigarette Cigarette Packs Per Day: 1 Years Smoked: 41 years (onset age 20, 1ppd x 41yrs, 40+pyh) Use of substances other than those prescribed or required for medical reasons: No Are you DNR?: No Advance Directives: No Advance Directives Information Provided: Yes Meds Allergies Allergy/AdvReac Type Severity Reaction Status Date / Time codeine [Codeine] Allergy Mild hives/vomit Verified 08/08/22 11:52 ing Active Medications: Current Medications Lactated Ringer's (Lr) 1,000 mls @ 100 mls/hr IVCONT .Q10H YADIRA Last Admin: 08/08/22 12:21 Dose: 100 mls/hr Exam Exam Date and Time: August 08, 2022 1312 Height,Weight and Vital Signs: Height 5 ft 9 in Weight 66.224 kg Last Vital Signs Temp 98.3 F 08/08/22 12:19 Pulse 102 H 08/08/22 12:19 Resp 18 08/08/22 12:19 BP 143/81 H 08/08/22 12:19 Pulse Ox 96 08/08/22 12:19 O2 Del Method 08/08/22 12:19 Airway Mallampati Class: II TM Dist: >3cm Denture: Upper Loose/Missing/Broken Teeth: No Heart: RRR Lungs: CTA Assessment and Plan Assessment Anesthesia Assessment: Anesthesia Plan Discussed and Chart Reviewed Final Anesthetic Review Family History of Problems with Anesthesia: No History of Problems with Anesthesia: No NPO: Yes ASA Class: II Final Preanesthetic Review: No Changes in Pt Med Stat, Meds/Allgs Chart Reviewed and Consent Obtained/Reviewed Patient Risk: Intermediate Procedure Risk: Low Anesthetic Plan Anesthetic Plan: GA Disposition: Standard PACU
== END ==
PROVIDERS: PCP Internal Medicine Medical Oncology; Visit Provider Surgery
DX: C34.12 Malignant neoplasm of upper lobe, left bronchus or lung (principal); Z53.8 Procedure and treatment not carried out for other reasons
CPT/HCPCS: J0690; J1100; J2250; J2405; J3010

== ENCOUNTER 2022-09-05 10:00 | Day surgery (SDC) | payer OTHER, SELFPAY ==
[2022-09-01 14:42] VITALS: BMI 23.4
[2022-09-05] VITALS (9 sets, daily range): BP systolic 108–125; BP diastolic 60–84; PULSE 90–107; RESP 12–99; TEMP 36.4; O2SAT 91–97
--- NOTE | 2022-09-05 10:18 | HO.ANESPROP2 ---
[facility], [facility] Active Problems Active Problems: All Active Problems (Updated 08/08/22 @ 11:47 by Aga Pichardo RN) Pulmonary nodule (Acute) Cancer of upper lobe of left lung (Acute) COPD (chronic obstructive pulmonary disease) (Acute) Smoker (Acute) Primary malignant neoplasm of right upper lobe of lung (Acute ~2020) Past Medical History Medical History Carcinoma of lung COPD (chronic obstructive pulmonary disease) History of hepatitis C Hyperplastic colon polyp Osteopenia Primary malignant neoplasm of right upper lobe of lung (~2020) Smoker Family History Family History Mother Cancer Father Cancer Paternal Grandmother Cancer HTN (hypertension) Family history of problems with anesthesia: No Surgical History Surgical History History of colonoscopy History of esophagogastroduodenoscopy (EGD) History of lobectomy of lung (~01/2021) History of lobectomy of lung History of resection of large bowel (~01/2009) History of Problems with Anesthesia: No Social History Social History Alcohol intake: current Alcohol intake frequency: 0-2 drinks per day Patient Tobacco Use Status: Former Tobacco user Quit Date: 05/2022 Tobacco use type: Cigarette Cigarette Packs Per Day: 1 Years Smoked: 41 years (onset age 20, 1ppd x 41yrs, 40+pyh) Second Hand Smoke Exposure: No Use of substances other than those prescribed or required for medical reasons: No Are you DNR?: No Advance Directives: No Advance Directives Information Provided: Yes Advance Directives on File: No Meds Allergies Allergy/AdvReac Type Severity Reaction Status Date / Time codeine [Codeine] Allergy Mild hives/vomit Verified 08/08/22 11:52 ing Exam Exam Date and Time: September 05, 2022 1018 Height,Weight and Vital Signs: Height 5 ft 9 in Weight 72 kg Airway Mallampati Class: II (Edentuously on top) TM Dist: >3cm Neck ROM: Full Heart: rrr Lungs: cta Assessment and Plan Assessment Anesthesia Assessment: Anesthesia Plan Discussed and Chart Reviewed Final Anesthetic Review Family History of Problems with Anesthesia: No History of Problems with Anesthesia: No NPO: Yes ASA Class: III Final Preanesthetic Review: No Changes in Pt Med Stat, Meds/Allgs Chart Reviewed and Consent Obtained/Reviewed Patient Risk: Intermediate Procedure Risk: Intermediate Anesthetic Plan Anesthetic Plan: GA Disposition: Standard PACU
[2022-09-05] MEDS: Lactated Ringers 1,000 ML 50 ML IVCONT (10:31)
--- NOTE | 2022-09-05 11:28 | MHC.SHP ---
Pre-Procedural Eval Section A Date of Service: 09/05/22 The patient is an INPATIENT: No The History & Physical has been completed within 30 days and I have reviewed it.: Yes Section B Chief Complaint: Malignant neoplasm of upper lobe, left bronchus or Allergies: Allergies Allergy/AdvReac Type Severity Reaction Status Date / Time codeine [Codeine] Allergy Mild hives/vomit Verified 08/08/22 11:52 ing Plan I have reviewed the history and physical and performed a pertinent physical examination on my patient. No changes have occurred unless specified.
--- NOTE | 2022-09-05 12:22 | W.PM.OPN ---
Operative Note Operative Note Date of Service: 09/05/22 Narrative: Preoperative diagnosis: Mediastinal lymphadenopathy left upper lobe lung cancer Postoperative diagnosis: Same Operation: Endobronchial ultrasound with biopsy of multiple lymph node stations Surgeon: Olayinka Stevens MD Anesthesia: General Specimens: Mediastinal lymph nodes right level 4, left level 4, and subcarinal EBL: Operation in detail: The patient was brought to the operating room, placed supine on the operative table, anesthesia monitor devices were placed, and the patient was intubated with an 8 and half endotracheal tube. A time-out was performed confirming the correct patient, site, and procedure. The Olympus endobronchial ultrasound scope was then inserted through the endotracheal tube and the airways were visualized down to the subsegmental level bilaterally. Findings are no endobronchial lesions and minimal secretions. The bronchial stumps appeared normal. The ultrasound was then applied to all 3 stations visualizing the lymph nodes with the findings small normal appearing lymph nodes in all stations examined. First, we visualized with ultrasound the subcarinal lymph nodes in using a 19 gauge Olympus biopsy needle 3 passes were taking and sent for on-site evaluation. This process was then repeated with right paratracheal and left paratracheal lymph nodes. Findings are 1st pass for on-site evaluation of subcarinal and right paratracheal or adequate sampling and negative for malignancy. The remainder of the passes were sent directly and cell block. Left paratracheal lymph nodes little more difficult to get to and all passes were sent in cell block. Hemostasis was then assured in the bronchoscope was removed. The patient tolerated the procedure well, was extubated in the operating room, and brought to the PACU in stable condition.
== END 2022-09-05 14:15 | disposition home or self-care (01) ==
PROVIDERS: PCP Internal Medicine Medical Oncology; Visit Provider Surgery
DX: C34.12 Malignant neoplasm of upper lobe, left bronchus or lung (principal); R59.0 Localized enlarged lymph nodes; Z90.2 Acquired absence of lung [part of]; J44.9 Chronic obstructive pulmonary disease, unspecified; M85.80 Other specified disorders of bone density and structure, unspecified site; Z79.899 Other long term (current) drug therapy; Z88.8 Allergy status to other drugs, medicaments and biological substances; Z86.19 Personal history of other infectious and parasitic diseases; Z87.891 Personal history of nicotine dependence
CPT/HCPCS: 31653; 88172; 88173; 88305; J0171; J1100; J2250; J2405; J3010

== ENCOUNTER → 2022-09-26 10:35 | Outpatient (BNVA) | payer OTHER, SELFPAY | PROVIDERS: PCP Internal Medicine Medical Oncology; Visit Provider Surgery | DX: C34.12 Malignant neoplasm of upper lobe, left bronchus or lung (principal); C34.11 Malignant neoplasm of upper lobe, right bronchus or lung | CPT/HCPCS: 99212 ==

== ENCOUNTER 2023-05-12 09:09 | Outpatient (REF) | payer OTHER, SELFPAY ==
--- NOTE | ~2023-05-12 | MM_ITS ---
EXAMINATION: BONE DENSITOMETRY CLINICAL INDICATION: Wedge compression fracture of T11-T12 vertebra. COMPARISON: Baseline BD dated 08/31/2018. TECHNIQUE: Using a [employer] DXA System (software version: 13.1) manufactured by [employer], dual-energy x-ray absorptiometry was performed of the lumbar spine and left hip. The images are of good technical quality. Summary results are attached. FINDINGS: LEFT FEMUR, NECK: Current: BMD 0.642 g/cm2, Z-score -1.6, T-score -2.8, osteoporosis. Baseline: BMD 0.731 g/cm2. LEFT FEMUR, TOTAL: Current: BMD 0.668 g/cm2, Z-score -1.8, T-score -2.7, osteoporosis, 8.6% decrease from baseline (<5% change is not significant). Baseline: BMD 0.731 g/cm2. AP SPINE L1-L4: Current: BMD 0.961 g/cm2, Z-score -0.6, T-score -1.8, osteopenia, 5.2% decrease from baseline (<5% change is not significant). Baseline: BMD 1.014 g/cm2. IDENTIFIED RISK FACTORS: Menopause, tobacco use (current smoker), history of fracture (adult). HISTORY OF FRACTURE: Spine. MEDICATIONS: Multivitamin, vitamin D. MM/XR DEXA axial skeleton IMPRESSION: 1. DIAGNOSIS: Osteoporosis based on the lowest T-score value of -2.8 in the femoral neck applying World Health Organization criteria. 2. 10-YEAR FRACTURE RISK PREDICTION, FRAX: According to the guidelines, FRAX calculation should only be performed on patients in the osteopenia bone density category. Therefore, FRAX was not performed on this patient. 3. Treatment Recommendations: NOF guidelines recommend consideration for treatment in postmenopausal women and men age 50 and older presenting with the following: -A hip or vertebral (clinical or morphometric) fracture. -T-score less than or equal to -2.5 at the femoral neck or spine after appropriate evaluation to exclude secondary causes. -Low bone mass at the hip or spine and a 10-year fracture probability by FRAX of greater than or equal to 3% for hip fracture or greater than or equal to 20% for major osteoporotic fracture based on the [place] adapted WHO algorithm. 4. Other Recommendations: All treatment decisions require clinical judgment and consideration of individual patient factors, including patient preferences, comorbidities, previous drug use, risk factors not captured in the FRAX model (e.g. frailty, falls, vitamin D deficiency, increased bone turnover, interval significant decline in bone density) and possible under or overestimation of fracture risk by FRAX. Additional medical evaluation for secondary cause of low bone mineral density may be appropriate. FUTURE SCAN RECOMMENDATION: People with diagnosed cases of osteoporosis or at high risk for fracture should have regular bone mineral density tests. For patients eligible for Medicare, routine testing is allowed once every 2 years. The testing frequency can be increased to one year for patients who have rapidly progressing disease, those who are receiving or discontinuing medical therapy to restore bone mass, or have additional risk factors.
== END 2023-05-12 09:10 | disposition home or self-care (01) ==
LOC: HO.MAMMO 09:09
PROVIDERS: Absent Provider Internal Medicine; PCP Internal Medicine Medical Oncology; Visit Provider Internal Medicine Medical Oncology
DX: Z13.820 Encounter for screening for osteoporosis (principal); Z78.0 Asymptomatic menopausal state
CPT/HCPCS: 77080

== ENCOUNTER 2023-09-01 15:18 | Outpatient (REF) | payer OTHER, SELFPAY | END 2023-09-01 15:19 | disposition home or self-care (01) | LOC: HO.HOSX 15:18 | PROVIDERS: Visit Provider Physician Assistant | DX: Z13.89 Encounter for screening for other disorder (principal) ==

== ENCOUNTER 2023-09-02 09:52 | Outpatient (AMB) | payer OTHER, SELFPAY ==
--- NOTE | 2023-09-02 10:03 | MHC.OFFVIS ---
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 Patient reports pain presented after her first lung surgery a few years ago. States dropping items such as a half a gallon of milk. She has shooting pain in her shoulder that radiates down her arm. Her pain is intermittent however pain gets worse with use of left arm. Denies injury, numbness or tingling. Finds some relief with Advil and heating pad. No previous tx. 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 She states she has intermittent shooting pain and weakness in her shoulder which radiates down to her arm. Her pain is aggravated with twisting movements and overuse of her left arm. She also c/o dropping items such as a half a gallon of milk. She denies any numbness or tingling. She finds mild relief with Advil and heating pad. She has not had any treatment in the past. [facility] Medical History (Updated 09/02/23 @ 11:21 by Pamela Henning PA-C) Personal history of nicotine dependence (~1980) Hyperplastic colon polyp (~2001) Osteopenia (~2017) History of hepatitis C Primary malignant neoplasm of right upper lobe of lung (~2020) COPD (chronic obstructive pulmonary disease) Surgical History (Reviewed 09/02/23 @ 10:05 by Reyna Blackwell [facility]) History of bronchoscopy (~08/2022) History of lobectomy of lung (~05/2022) History of esophagogastroduodenoscopy (EGD) (~2018) History of colonoscopy (~2010) History of resection of large bowel (~01/2009) History of lobectomy of lung (~01/2021) Family History (Updated 01/15/23 @ 12:51 by Milvia Miller PA-C) Mother Colon cancer, Onset Age: 44 Father Cancer Paternal Grandmother Cancer HTN (hypertension) Social History (Updated 09/02/23 @ 10:06 by Reyna Blackwell Alfred) Alcohol intake: current Alcohol intake frequency: 0-2 drinks per day Patient Tobacco Use Status: Former Tobacco user Quit Date: 05/2022 Tobacco use type: Cigarette Cigarette Packs Per Day: 1 Years Smoked: 41 years (onset age 20, 1ppd x 41yrs, 40+pyh) Second Hand Smoke Exposure: No Current occupational status: employed 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 Tenderness over the bicipital groove and along the deltoid region of the shoulder. Forward flexion to 175, external rotation to 90, internal rotation to S1. Pain and weakness with RTC strength testing Results Reviewed Results Reviewed: X-rays of the left shoulder obtained in the office today show glenohumeral joint arthritis, osteophyte formation and sclerosis of the acromion. Assessment & Plan Assessment & Plan (1) Tendonitis of left rotator cuff: Code(s): M75.82 - Other shoulder lesions, left shoulder (2) Osteoarthritis of glenohumeral joint: Code(s): M19.019 - Primary osteoarthritis, unspecified shoulder Qualifiers: Laterality: left Qualified Code(s): M19.012 - Primary osteoarthritis, left shoulder Plan We discussed options which include cortisone injection, physical therapy and further imaging. A referral to physical therapy has been placed and she will also be sent to MRI to further evaluate integrity of RTC. Once the scan is complete, she will see back to discuss further treatment options. Orders: Orders XR shoulder LT min 2V Today M25.512 - Pain in left shoulder PT Evaluation and Treatment Today M19.019 - Primary osteoarthritis, unspecified shoulder, M75.82 - Other shoulder lesions, left shoulder XR elbow LT min 3V Today M25.522 - Pain in left elbow Patient Instructions: Scribed for Pamela Henning PA-C, by Ady Liu medical intern, on 09/02/2023 at 10:00 AM EST. I, Pamela Henning PA-C, have personally reviewed and agree with the information entered by the scribe. Coding Level of Care Code New Pt Level 3 (29514) Diagnoses Tendonitis of left rotator cuff M75.82 Osteoarthritis of left glenohumeral joint M19.012 Laterality: left
[2023-09-02 10:05] VITALS: BMI 21.6
== END 2023-09-02 10:33 | disposition home or self-care (01) ==
PROVIDERS: PCP Internal Medicine Medical Oncology; Visit Provider Physician Assistant
DX: M75.82 Other shoulder lesions, left shoulder (principal); M19.012 Primary osteoarthritis, left shoulder
CPT/HCPCS: 99204

== ENCOUNTER 2023-09-02 10:17 | Outpatient (REF) | payer OTHER, SELFPAY ==
--- NOTE | ~2023-09-02 | XR_ITS ---
EXAMINATION: XR SHOULDER, LEFT XR ELBOW, LEFT CLINICAL INFORMATION: Pain left shoulder and elbow. COMPARISON: None available. TECHNIQUE: 3 views of the left shoulder. 3 views of the left elbow. FINDINGS: LEFT SHOULDER: Advanced degenerative changes at the glenoid joint with hypertrophic change and flattening and deformity of the subjacent articular surfaces. Advanced degenerative changes of the acromioclavicular joint with joint space narrowing. Degenerative changes in the imaged upper thoracic spine. Postsurgical changes with sutures projecting over the mid left lung. Small coils project over the soft tissues of the upper left arm. LEFT ELBOW: Bones are diffusely demineralized. Alignment preserved. Moderate degenerative changes with hypertrophic change. Corticated 1.1 x 0.4 cm ossicle along the inferior aspect of the medial condyle of the left elbow, possibly related to trauma of indeterminate age. XR/XR shoulder LT min 2V IMPRESSION: 1. Advanced degenerative changes left shoulder. 2. Postsurgical changes on limited images of the left hemithorax are better evaluated with dedicated views of the chest. 3. Moderate degenerative changes left elbow. 4. Corticated 1.1 x 0.4 cm ossicle along the inferior aspect of the medial condyle of the left elbow, possibly related to trauma of indeterminate age. Correlation with clinical exam recommended to determine further management including possible additional imaging with CT scan or MRI.
--- NOTE | ~2023-09-02 | XR_ITS ---
EXAMINATION: XR SHOULDER, LEFT XR ELBOW, LEFT CLINICAL INFORMATION: Pain left shoulder and elbow. COMPARISON: None available. TECHNIQUE: 3 views of the left shoulder. 3 views of the left elbow. FINDINGS: LEFT SHOULDER: Advanced degenerative changes at the glenoid joint with hypertrophic change and flattening and deformity of the subjacent articular surfaces. Advanced degenerative changes of the acromioclavicular joint with joint space narrowing. Degenerative changes in the imaged upper thoracic spine. Postsurgical changes with sutures projecting over the mid left lung. Small coils project over the soft tissues of the upper left arm. LEFT ELBOW: Bones are diffusely demineralized. Alignment preserved. Moderate degenerative changes with hypertrophic change. Corticated 1.1 x 0.4 cm ossicle along the inferior aspect of the medial condyle of the left elbow, possibly related to trauma of indeterminate age. XR/XR elbow LT min 3V IMPRESSION: 1. Advanced degenerative changes left shoulder. 2. Postsurgical changes on limited images of the left hemithorax are better evaluated with dedicated views of the chest. 3. Moderate degenerative changes left elbow. 4. Corticated 1.1 x 0.4 cm ossicle along the inferior aspect of the medial condyle of the left elbow, possibly related to trauma of indeterminate age. Correlation with clinical exam recommended to determine further management including possible additional imaging with CT scan or MRI.
== END 2023-09-02 10:18 | disposition home or self-care (01) ==
LOC: HO.HOSX 10:17
PROVIDERS: Visit Provider Physician Assistant
DX: M25.522 Pain in left elbow (principal); M75.82 Other shoulder lesions, left shoulder; M19.012 Primary osteoarthritis, left shoulder
CPT/HCPCS: 73030; 73080

== ENCOUNTER → 2024-03-28 12:14 | Outpatient (REF) | payer OTHER, SELFPAY ==
--- NOTE | 2024-03-28 12:26 | ECG_ITS ---
Test Reason : R00.0 Blood Pressure : / mmHG Vent. Rate : 113 BPM Atrial Rate : 113 BPM P-R Int : 152 ms QRS Dur : 074 ms QT Int : 338 ms P-R-T Axes : 071 058 -15 degrees QTc Int : 463 ms Sinus tachycardia Possible Left atrial enlargement Septal infarct (cited on or before 28-MAR-2024) Abnormal ECG When compared with ECG of 01-FEB-2019 15:01, No significant change was found Referred By: Sonido Mcdaniels Electronically Signed By:SUNDAY VENTURA MD
[2024-03-28 12:33] LABS: MANUAL DIFF FLAG NO
[2024-03-28 12:57] LABS: Basophils Absolute Auto 0.1 X10*3/uL (0.0-0.2); Eosinophils Absolute Auto 0.1 X10*3/uL (0.0-0.4); Eosinophils Percent Auto 1.5 % (0-4); Hematocrit 48.9 % (37.0-47.0); Imm Gran Abs Auto 0.08 X10*3/uL (0.00-0.03); Imm Gran Pct Auto 0.9 % (0.0-0.4); Lymphocytes Absolute Auto 3.1 X10*3/uL (1.2-4.9); Lymphocytes Percent Auto 34.1 % (20-40); Mean Corpuscular HGB Conc 34.8 g/dl (31.0-35.0); Mean Corpuscular Hemoglobin 35.9 pg (27.0-33.0); Mean Corpuscular Volume 103.2 fL (80.0-98.0); Mean Platelet Volume 9.2 fL (9.4-12.3); Monocytes Absolute Auto 0.8 X10*3/uL (0.1-1.2); Monocytes Percent Auto 8.9 % (2-11); Neutrophils Absolute Auto 4.9 x10*3/uL (2.0-8.3); Neutrophils Percent Auto 53.6 % (45-73); Platelet Count 207 X10*3/uL (160-400); Red Blood Count 4.74 X10*6/uL (4.20-5.50); Red Cell Distribution Width 13.2 % (11.0-16.0); White Blood Count 9.1 X10*3/uL (4.8-10.8)
[2024-03-28 13:32] LABS: Alanine Aminotransferase 24 U/L (0-31); Albumin Level 4.9 g/dL (3.5-5.0); Alkaline Phosphatase 123 U/L (39-117); Anion Gap 18 (12-20); Aspartate Amino Transferase 35 U/L (5-31); Bilirubin Total 0.4 mg/dL (0.0-1.0); Blood Urea Nitrogen 10 mg/dL (9-16); Calcium 10.8 mg/dL (8.4-10.2); Carbon Dioxide 26 mmol/L (22-29); Chloride 102 mmol/L (96-108); Estimated Glomerular Filt Rate > 60; Glucose Random 94 mg/dL (60-115); Potassium 4.1 mmol/L (3.3-5.1); Sodium 142 mmol/L (135-145); Total Protein 8.2 g/dL (6.5-8.0)
[2024-03-28 13:47] LABS: Free T4 (Free Thyroxine) 0.99 ng/dL (0.71-1.85); Thyroid Stimulating Hormone 0.99 uIU/mL (0.32-4.0)
[2024-03-29 08:48] LABS: Triiodothyronine T3 Total 141 ng/dL (76-181)
== END ==
LOC: HO.CARD 12:14
PROVIDERS: PCP Internal Medicine Medical Oncology; Visit Provider Internal Medicine Medical Oncology
DX: R00.0 Tachycardia, unspecified (principal)
CPT/HCPCS: 36415; 80053; 84436; 84439; 84443; 84480; 85025; 93005

== ENCOUNTER → 2024-03-28 12:26 | Outpatient (BNV) | payer OTHER, SELFPAY | PROVIDERS: PCP Internal Medicine Medical Oncology; Visit Provider Internal Medicine Cardiovascular Disease | DX: R00.0 Tachycardia, unspecified (principal); R94.31 Abnormal electrocardiogram [ECG] [EKG] | CPT/HCPCS: 93010 ==

== ENCOUNTER 2024-07-25 07:42 | Outpatient (REF) | payer OTHER, SELFPAY ==
[2024-07-25 08:02] LABS: MANUAL DIFF FLAG NO
[2024-07-25 08:37] LABS: Basophils Absolute Auto 0.1 X10*3/uL (0.0-0.2); Basophils Percent Auto 0.8 % (0-2); Eosinophils Absolute Auto 0.2 X10*3/uL (0.0-0.4); Hematocrit 45.9 % (37.0-47.0); Hemoglobin 15.9 g/dl (12.0-16.0); Imm Gran Abs Auto 0.04 X10*3/uL (0.00-0.03); Imm Gran Pct Auto 0.4 % (0.0-0.4); Lymphocytes Absolute Auto 2.9 X10*3/uL (1.2-4.9); Lymphocytes Percent Auto 31.3 % (20-40); Mean Corpuscular HGB Conc 34.6 g/dl (31.0-35.0); Mean Corpuscular Hemoglobin 37.1 pg (27.0-33.0); Mean Corpuscular Volume 107.2 fL (80.0-98.0); Mean Platelet Volume 9.4 fL (9.4-12.3); Monocytes Absolute Auto 0.7 X10*3/uL (0.1-1.2); Neutrophils Absolute Auto 5.4 x10*3/uL (2.0-8.3); Neutrophils Percent Auto 58.5 % (45-73); Platelet Count 175 X10*3/uL (160-400); Red Blood Count 4.28 X10*6/uL (4.20-5.50); Red Cell Distribution Width 11.3 % (11.0-16.0); White Blood Count 9.3 X10*3/uL (4.8-10.8)
[2024-07-25 09:20] LABS: Alanine Aminotransferase 36 U/L (0-31); Albumin Level 4.6 g/dL (3.5-5.0); Alkaline Phosphatase 89 U/L (39-117); Anion Gap 16 (12-20); Aspartate Amino Transferase 43 U/L (5-31); Bilirubin Total 0.5 mg/dL (0.0-1.0); Blood Urea Nitrogen 8 mg/dL (9-16); Calcium 9.9 mg/dL (8.4-10.2); Carbon Dioxide 26 mmol/L (22-29); Chloride 105 mmol/L (96-108); Cholesterol 203 mg/dL (<200); Estimated Glomerular Filt Rate > 60; Glucose Fasting 85 mg/dL (60-99); HDL Cholesterol 54 mg/dL (>40); LDL Cholesterol Calculated 124 mg/dL (<100); Potassium 3.5 mmol/L (3.3-5.1); Sodium 143 mmol/L (135-145); Total Protein 7.6 g/dL (6.5-8.0); Triglycerides 129 mg/dL (<150)
[2024-07-25 09:38] LABS: Free T4 (Free Thyroxine) 0.87 ng/dL (0.71-1.85); Thyroid Stimulating Hormone 1.01 uIU/mL (0.32-4.0)
== END 2024-07-25 07:43 | disposition home or self-care (01) ==
LOC: HO.LAB 07:42
PROVIDERS: PCP Internal Medicine Medical Oncology; Visit Provider Internal Medicine Medical Oncology
DX: M51.36 Other intervertebral disc degeneration, lumbar region (principal); D75.89 Other specified diseases of blood and blood-forming organs; E03.9 Hypothyroidism, unspecified; B19.20 Unspecified viral hepatitis C without hepatic coma
CPT/HCPCS: 36415; 80053; 80061; 84439; 84443; 85025

== ENCOUNTER 2024-08-23 15:18 | Outpatient (REF) | payer OTHER, SELFPAY ==
--- NOTE | ~2024-08-23 | MM_ITS ---
EXAMINATION: MM SCREENING DIGITAL BREAST TOMOSYNTHESIS, BILATERAL CLINICAL INFORMATION: Screening. Asymptomatic. COMPARISON: Mammography: Comparison is made with available priors TECHNIQUE: Digital breast mammography with tomosynthesis is performed in both the craniocaudal and mediolateral oblique views along with computer-aided detection (CAD). FINDINGS: The breasts are heterogeneously dense, which may obscure small masses (ACR BI-RADS breast composition Category c). There are no significant masses, abnormal calcifications, or other abnormalities. MM/MM tomosynthesis screening BI IMPRESSION: No mammographic evidence of malignancy. ASSESSMENT: BI-RADS BI-RADS 1 - Negative RECOMMENDATION: Routine annual mammography screening. 1 year F/U This examination should not preclude the clinical evaluation of a suspicious palpable abnormality. This patient's information was entered into a reminder system with a target due date for their next mammogram. Electronically signed by: Aminata Butt DO 09/05/2024 05:57 PM EDT
== END 2024-08-23 15:19 | disposition home or self-care (01) ==
LOC: HO.MAMMO 15:18
PROVIDERS: PCP Internal Medicine Medical Oncology; Visit Provider Internal Medicine Medical Oncology
DX: Z12.31 Encounter for screening mammogram for malignant neoplasm of breast (principal)
CPT/HCPCS: 77063; 77067

== ENCOUNTER → 2024-08-23 16:00 | Outpatient (BNV) | payer OTHER, SELFPAY | PROVIDERS: PCP Internal Medicine Medical Oncology; Visit Provider Internal Medicine | DX: Z12.31 Encounter for screening mammogram for malignant neoplasm of breast (principal) | CPT/HCPCS: 77063; 77067 ==

== ENCOUNTER 2024-12-26 15:32 | Outpatient (REF) | payer OTHER, SELFPAY | END 2024-12-26 15:33 | disposition home or self-care (01) | LOC: HO.XRAY 15:32 | PROVIDERS: PCP Internal Medicine Medical Oncology; Visit Provider Internal Medicine Medical Oncology | DX: M54.50 Low back pain, unspecified (principal) | CPT/HCPCS: 72100; 72220 ==

== ENCOUNTER → 2024-12-26 15:36 | Outpatient (BNV) | payer OTHER, SELFPAY | PROVIDERS: PCP Internal Medicine Medical Oncology; Visit Provider Radiology Diagnostic Radiology | DX: M51.369 Other intervertebral disc degeneration, lumbar region without mention of lumbar back pain or lower extremity pain (principal); M54.50 Low back pain, unspecified | CPT/HCPCS: 72100; 72220 ==

== ENCOUNTER 2025-09-04 13:35 | Outpatient (REF) | payer OTHER, SELFPAY ==
--- OUTSIDE RECORDS SUMMARY | 2025-01-23 11:15 | XMS_ITS ---
Author Organization Sonido Mcdaniels III, MD Address [address] [place] [address] [place] [address] Care Team Providers Care Business Management Specialist Name Role Phone Dr. Sonido Mcdaniels III Primary Care Provider Allergies Allergen (clinical drug ingredient) Drug/Non Drug Allergy documented on EMR Reaction Allergy Type Onset Date Status Seasonale Unknown Drug Allergy Active codeine Codeine Sulfate rash Drug Allergy A ctive REASON FOR VISIT portacath flush Medications Medication SIG (Take, Route, Frequency, Duration) Notes Start Date End Date Status Pantoprazole Sodium 20 MG 1 tablet Orall y Once a day Active Vitamin B Complex - Orally Active Advil 200 MG 1 tablet with food o r milk as needed Orally Three times a day Active Vitamin D 50 MCG (2000 UT) 1 tablet Oral ly Once a day Active Atezolizumab 840 MG/14ML as directed Intravenous Active Acetaminophen 325 MG 1 tablet as needed Orally every 6 hrs 02/18/2024 Active oxyCODONE HCl 5 MG 1 tablet as needed O rally every 6 hrs 02/18/2024 Active Calcium 500 bid Active Alendronate Sodium 70 MG TAKE 1 TABLET B Y MOUTH ONCE A WEEK 30 MINUTES BEFORE THE FIRST FOOD, BEVERAGE OR MEDICATION OF THE DAY WITH PLAIN WATER. Active Social History Tobacco Use: Social History Observation Description Date Details (start date - stop date) Former Smoker NA - NA Sex Assigned At : Social History Observation Description Sex Assigned At Female Tobacco Control (Standard) Question Answer Notes Tobacco use: Former smoker Encounters Encounter Location Date Provider Diagnosis Sonido Mcdaniels III, MD [address] [place] [address] [address] [place] [address] 01/23/2025 Sonido Mcdaniels Degenerative disc disease, lumbar M51.36 Assessments Encounter Date Diagnosis (ICD Code) Assessment Notes Treat ment Notes Treatment Clinical Notes 01/23/2025 Degenerative disc disease, lumbar (ICD-10 - M51.36) She reports her back pain has become more severe. There was limitation of range of motion of the lumbar spine with some muscle spasm. She will use heat and rest ibuprofen. She was referred to physical therapy and pain management. X-rays will be requested. Plan Of Treatment Medication Medication Name Sig Start Date Stop Date Notes Pantoprazole Sodium 20 MG 1 tablet Orally Once a day Vitamin B Complex - Orally Advil 200 MG 1 tablet with food o r milk as needed Orally Three times a day Vitamin D 50 MCG (1999 UT) 1 tablet Orally Once a day Atezolizumab 840 MG/14ML as directed Intravenous Acetaminophen 325 MG 1 tablet as needed Orally every 6 hrs 02/18/2024 oxyCODONE HCl 5 MG 1 tablet as needed O rally every 6 hrs 02/18/2024 Calcium 500 bid Alendronate Sodium 70 MG TAKE 1 TABLET B Y MOUTH ONCE A WEEK 30 MINUTES BEFORE THE FIRST FOOD, BEVERAGE OR MEDICATION OF THE DAY WITH PLAIN WATER. Next Appt Details Provider Name:Sonido Mcdaniels , 10/30/2025 02:30:00 PM, [address] [place] [address] [address], [place], [address], Provider Name:Sonido Mcdaniels , 08/01/2026 02:00:00 PM, [address] [place] [address] [address], [place], [address], Progress Notes * Sherice MASSEY ADOB: 0 (65 yo F)Acc No.[id number]:01/23/2025 Patient: Katie CAMERON Sherice Simon Provider: Carter Mcdaniels MD :1960 A ge:64 Y S ex:Female Date:01/23/2025 Address:[address] [place] [address] [id number] Subjective: * Chief Complaints: * 1 . Portacath flush. * HPI: C OVID-19 Screening: Questions H ave you had any new onset fever, chills, cough, congestion, sore throat, shortness of breath, muscle aches? N o * ROS: G eneral/Constitutional: pain o nly normal aches and pains. C hills d enies.?Fatigue a dmits. F ever d enies. E NT: Decreased hearing d enies. R espiratory: Cough d enies. C ardiovascular: Chest pain with exertion d enies. D yspnea on exertion?denies. S hortness of breath d enies. G astrointestinal: Constipation d enies. D ecreased appetite d enies.?Diarrhea d enies. H eartburn d enies. N ausea d enies. R ectal bleeding?denies. V omiting d enies. H ematology: bruising d enies. p etechiae d enies. S wollen glands n one have been noted. G enitourinary: Frequent urination d enies. M usculoskeletal: Muscle aches d enies. P ainful joints d enies. S ciatica d enies. W eakness d enies. S kin: Itching d enies. R jigar d enies. S kin lesion(s)?denies. N eurologic: Difficulty speaking d enies. D izziness d enies.?Headache d enies. L ow back pain d enies. P sychiatric: Depressed mood d enies. * Medical History: L umbar disc disease, history of diverticulitis 2008, Dr. Gavi Stover, Dental extractions in progress, 2016 positive HPV, Depression, Anxiety, history of IVDU, History of viral hepatitis, Ovarian cysts, Uterine fibroids, history of Nabothian cyst, History of bleeding hemorrhoids, Family history of colon cancer, Depression. 2017, several pulmonary nodules January 2019, November 25, 2020, multiple right- sided rib fractures, [id number] adenocarcinoma right upper lobe January 2021, [id number] adenocarcinoma left upper lobe June 10, 2022, T11 compression fracture April 2023, 01/18/2024 right hip replacement [place] [facility] [place] Yared MAYES, Former smoker, Fractured Back - Occurred during chemotherapy in 2022, Broken Ribs - Not Discussed, Right Hip Replacement - Not Discussed, Lung Cancer, Back Pain. * Surgical History: l aparoscopic surgery for diverticulitis, 01/2009, colonoscopy, one hyperplastic polyp, Dr. Stover 02/2011, dental extractions in progress 2017, colonoscopy, [facility], Dr. Adams, hematochezia, negative 2001, Resection adenocarcinoma, left upper lobe 06/10/2020, right hip nailling at [facility] by Dr Yared MAYES, Intertrochanteric fracture 01/18/2024, Left upper lobe wedge resection non-small cell carcinoma October 2023, Right hip replacement - not discussed , No history . * Hospitalization/Major Diagno stic Procedure: F [facility]JOR 9 days 01/2019, Bilateral lung Nodule 11/2020, rib fracture 11/2020, resection spiculated lung lesion right upper lobe [facility] 01/2021, Resection adenocarcinoma, left upper lobe 06/10/2022, right hip replacement at [facility] 01/18/2024, No history . * Family History: F ather: 74 yrs, Head and neck cancer, coronary artery disease, from ruptured bowel caused by chemotherapy, diagnosed with CVD. M other: 47 yrs, Colostomy, urostomy, colon cancer, diagnosed with Cancer. S iblings: alive. P aternal aunt: alive, diagnosed with Cancer. 1 brother(s) , 2 sister(s) . . She has a half brother and 2 sisters. One sister has fibromyalgia and one has a genetic heart disease. Her mother had a type of cancer that affected the lymph glands. She has a paternal aunt with breast cancer diagnosed over the age of 50. Her mother had colon cancer at the age of 44. Her mother\\\\'s father had colon cancer at the age of 54. Sister with multiple health issues. * Social History: T obacco Use: T obacco Control (Standard) T obacco use: F ormer smoker S he was born in [place], [place]. She is with no children but has had several miscarriages. 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 Smoking - No, Alcohol - Not Discussed, Drug Use - Not Discussed, Diet - Not Discussed, Exercise - Not Discussed, Work Environment - Not Discussed, Living Situation - Not Discussed. Smoking: No, Work: [employer]. * Medications: T aking Alendronate Sodium 70 MG Tablet TAKE 1 TABLET BY MOUTH ONCE A WEEK 30 MINUTES BEFORE THE FIRST FOOD, BEVERAGE OR MEDICATION OF THE DAY WITH PLAIN WATER. , Taking Acetaminophen 325 MG Tablet 1 tablet as needed Orally every 6 hrs , Taking Calcium 500 , Notes to Pharmacist: bid, Taking Vitamin D 50 MCG (2000 UT) Tablet 1 tablet Orally Once a day , Taking Advil 200 MG Tablet 1 tablet with food or milk as needed Orally Three times a day , Taking Vitamin B Complex - Tablet Orally , Taking Pantoprazole Sodium 20 MG Tablet Delayed Release 1 tablet Orally Once a day , Taking Atezolizumab 840 MG/14ML Solution as directed Intravenous , Discontinued oxyCODONE HCl 5 MG Tablet 1 tablet as needed Orally every 6 hrs , Medication List reviewed and reconciled with the patient * Allergies: C odeine Sulfate: rash - Side Effects, Seasonale. Objective: * Vitals: * Examination: G eneral Examination: GENERAL APPEARANCE: p leasant, well nourished, well developed, in no acute distress, calm and relaxed. HEAD: a traumatic, normocephalic. EYES: e jessie, perrla, anicteric, conjugate. EARS: n ormal. NOSE: s eptum intact. ORAL CAVITY: n ormal, unremarkable. NECK/THYROID: n o jugular venous distention, no carotid bruit, thyroid normal. LYMPH NODES: n o enlarged lymph nodes,spleen normal. SKIN: n o suspicious lesions, anicteric. HEART: n o clicks, gallops, murmurs, or rubs, regular rhythm, S1, S2 normal, no s3, or vascular bruits. LUNGS: c lear to auscultation . BREASTS: no masses palpable bilaterally. ABDOMEN: b owel sounds normal, no ascites, no organomegaly, no mass. RECTAL EXAM: n ot examined. MUSCULOSKELETAL: e xtremities unremarkable, no clubbing, cyanosis or edema. PERIPHERAL PULSES: n ormal. NEUROLOGIC: a lert and oriented, cranial nerves 2-12 grossly intact, deep tendon reflexes 2+ symmetrical, motor strength normal upper and lower extremities, sensory exam intact. PSYCH: a lert, oriented. Assessment: * Assessment: 1. D egenerative disc disease, lumbar - M51.36 N otes :She reports her back pain has become more severe. There was limitation of range of motion of the lumbar spine with some muscle spasm. She will use heat and rest ibuprofen. She was referred to physical therapy and pain management. X-rays will be requested. Plan: * Treatment: 2. O thers Continue Alendronate Sodium Tablet, 70 MG, TAKE 1 TABLET BY MOUTH ONCE A WEEK 30 MINUTES BEFORE THE FIRST FOOD, BEVERAGE OR MEDICATION OF THE DAY WITH PLAIN WATER.; C ontinue oxyCODONE HCl Tablet, 5 MG, 1 tablet as needed, Orally, every 6 hrs; C ontinue Acetaminophen Tablet, 325 MG, 1 tablet as needed, Orally, every 6 hrs. * Images: * The named appointment provid er may or may not be the originator of this progress note, and it is not deemed complete until electronically signed by the appointment provider. Sign off status: Pending * Provider: Carter Mcdaniels MD Date: 0 01/23/2025 Generated for Rica howard/Karol/Alessandraitting on: 1 04:44 PM EDT History and Physical Notes * HPI (History of Present Illness) Category Sub-Category Detail Notes COVID-19 Screening Questions Have you had any new onset fever, chills, cough, congestion, sore throat, shortness of breath, muscle aches?: No Examination Category Sub-Category Detail Notes General Examination GENERAL APPEARANCE: pleasant , well nourished, well developed, in no acute distress, calm and relaxed HEAD: atraumatic, normocep halic EYES: eomi, perrla, anicte zoltan, conjugate EARS: normal NOSE: septum intact NECK/THYROID: no jugular venous di stention, no carotid bruit, thyroid normal HEART: no clicks, gallops, murmurs, or rubs, regular rhythm, S1, S2 normal, no s3, or vascular bruits LUNGS: clear to auscultatio n ABDOMEN: bowel sounds normal, no ascites, no organomegaly, no mass NEUROLOGIC: alert and oriented, cranial nerves 2-12 grossly intact, deep tendon reflexes 2+ symmetrical, motor strength normal upper and lower extremities, sensory exam intact SKIN: no suspicious lesion s, anicteric PERIPHERAL PULSES: normal BREASTS: no masses palpable b ilaterally MUSCULOSKELETAL: extremities unremark able, no clubbing, cyanosis or edema LYMPH NODES: no enlarged lymph no kt,spleen normal RECTAL EXAM: not examined PSYCH: alert, oriented ORAL CAVITY: normal, unremarkable
--- OUTSIDE RECORDS SUMMARY | 2025-02-09 11:05 | XMS_ITS ---
Author Organization Sonido Mcdaniels III, MD Address [address] [place] [address] [place] [address] Care Team Providers Care Driving Instructor Name Role Phone Dr. Sonido Mcdaniels III Primary Care Provider REASON FOR VISIT Message Social History Sex Assigned At : Social History Observation Description Sex Assigned At Female Encounters Encounter Location Date Provider Diagnosis Sonido Mcdaniels III, MD [address] [place] [address] [place] [address] 02/09/2025 Sonido Mcdaniels Plan Of Treatment Next Appt Details Provider Name:Sonido Mcdaniels , 10/30/2025 02:30:00 PM, [address] [place] [address] [place], [address], Provider Name:Sonido Mcdaniels , 08/01/2026 02:00:00 PM, [address] [place] [address] [place], [address], Progress Notes * Sherice MASSEY ADOB: 0 (64 yo F)Acc No.[id number]:02/09/2025 Patient: Sherice DE LOS SANTOS :1960 A ge:64 Y S ex:Female Address:[address] [place] [address] [place], [address] * true * Date: Generated for Rica howard/Karol/Abdi on: 1 04:47 PM EDT
--- OUTSIDE RECORDS SUMMARY | 2025-02-13 09:00 | XMS_ITS ---
Author Organization Sonido Mcdaniels III, MD Address [address] [place] [address] [place] [address] Care Team Providers Care Scraper Hand Name Role Phone Dr. Sonido Mcdaniels III Primary Care Provider Allergies Allergen (clinical drug ingredient) Drug/Non Drug Allergy documented on EMR Reaction Allergy Type Onset Date Status Seasonale Unknown Drug Allergy Active codeine Codeine Sulfate rash Drug Allergy A ctive REASON FOR VISIT portacath flush, Non-small cell lung cancer, Macrocytosis, Osteoporosis Medications Medication SIG (Take, Route, Frequency, Duration) Notes Start Date End Date Status Alendronate Sodium 70 MG TAKE 1 TABLET B Y MOUTH ONCE A WEEK 30 MINUTES BEFORE THE FIRST FOOD, BEVERAGE OR MEDICATION OF THE DAY WITH PLAIN WATER. Active oxyCODONE HCl 5 MG 1 tablet as needed O rally every 6 hrs 02/18/2024 Active Vitamin B Complex - Orally Active Pantoprazole Sodium 20 MG 1 tablet Orall y Once a day Active Atezolizumab 840 MG/14ML as directed Intravenous Active Acetaminophen 325 MG 1 tablet as needed Orally every 6 hrs 02/18/2024 Active Calcium 500 bid Active Vitamin D 50 MCG (1999 UT) 1 tablet Oral ly Once a day Active Advil 200 MG 1 tablet with food o r milk as needed Orally Three times a day Active Social History Tobacco Use: Social History Observation Description Date Details (start date - stop date) Former Smoker NA - NA Sex Assigned At : Social History Observation Description Sex Assigned At Female Tobacco Control (Standard) Question Answer Notes Tobacco use: Former smoker Problems Problem Type SNOMED Code ICD Code Onset Dates Problem Status W/U Status Risk Notes Problem 64781727 Chronic obstructive pulmonary disease, unspecified COPD type (J44.9) Active confirmed She is currently comfortable breathing room air. Her COPD is controlled. She is up-to-date with her pulmonary physician. Problem 127369157 Non-small cell carcinoma of left lung (C34.92) Active confirmed The scars are well healed. There is no sign of disease recurrence. She is breathing comfortably. Vital Signs Temperature 98.1 degrees Fahrenheit 02/14/20 25 Blood pressure systolic 122 mm Hg 02/14/20 25 Blood pressure diastolic 74 mm Hg 025 Heart Rate 116 /min 02/13/2025 Height 69 in 02/13/2025 Weight 134 lbs 02/13/2025 BMI 19.79 kg/m2 02/13/2025 Encounters Encounter Location Date Provider Diagnosis Sonido Mcdaniels III, MD [address] [place] [address] [place] [address] 02/13/2025 Sonido Mcdaniels Degenerative disc disease, lumbar M51.36 ; Chronic obstructive pulmonary disease, unspecified COPD type J44.9 ; High risk HPV infection B97.7 ; History of depression Z86.59 ; Macrocytosis without anemia D75.89 ; Age-related osteoporosis without current pathological fracture M81.0 ; Former smoker Z87.891 ; Non-small cell cancer of right lung C34.91 ; S/P total right hip arthroplasty Z96.641 ; Hypothyroidism, unspecified E03.9 ; Port-a-cath in place Z95.828 ; Underweight R63.6 and Weight loss R63.4 Assessments Encounter Date Diagnosis (ICD Code) Assessment Notes Treatment Notes Treatment Clinical Notes 02/13/2025 Degenerative disc disease, lumbar (ICD-10 - M51.36) She reports her back pain has become more severe. There was limitation of range of motion of the lumbar spine with some muscle spasm. She will use heat and rest ibuprofen. She was referred to physical therapy and pain management. X-rays will be requested. 02/13/2025 Chronic obstructive pulmonary disease, unspecified COPD type (ICD-10 - J44.9) She is currently comfortable breathing room air. Her COPD is controlled. She is up-to-date with her pulmonary physician. 02/13/2025 High risk HPV infection (ICD-10 - B97.7) She has not been to the print line feeder and she has not had a recent Pap smear. This was performed today. A pelvic examination and Pap smear rectal examination were done in the office. There are no significant findings. 02/13/2025 History of depression (ICD-10 - Z86.59) She does not appear depressed today. She'll be observed carefully for recurrence. 02/13/2025 Macrocytosis without anemia (ICD-10 - D75.89) Her mean cell volume is now 107 with a hematocrit of 45%. This will be investigated again. She is not anemic but may have a maturation delay.She will have vitamin B12 and folic acid and reticulocytes. 02/13/2025 Age-related osteoporosis without current pathological fracture (ICD-10 - M81.0) She is currently taking vitamin D and calcium. I have added alendronate. 02/13/2025 Former smoker (ICD-10 - Z87.891) She has a plan to prevent relapse in times of stress and illness. 02/13/2025 Non-small cell cancer of right lung (ICD-10 - C34.91) There was no sign of either the right or left non-small cell carcinoma relapsing. There is no sign of progressive disease.She underwent a right upper lobectomy January 2021 that showed a high-grade adenocarcinoma. In June 2022 and enlarging nodule in the left upper lobe was removed which was also adenocarcinoma thought to be metastatic. She seems to be free of malignancy at this time. 02/13/2025 S/P total right hip arthroplasty (ICD-10 - Z96.641) Her right hip was replaced in January of this year. She is able to walk with only a cane now. She is progressing slowly with home physical therapy. 02/13/2025 Hypothyroidism, unspecified (ICD-10 - E03.9) She has been euthyroid. Comprehensive blood work with thyroid function tests have been ordered prior to her next visit. No change in her regimen has beenn made. 02/13/[address] Port-a-c[address] in place (ICD-10 - Z95.828) The port was flushed with heparin and saline. It functioned well. 02/13/2025 Underweight (ICD-10 - R63.6) She has been gradually losing weight. Her body mass index is now 19. She says her appetite is fair. No recurrence of the cancer has been demonstrated. I instructed her to gained 2 pounds when she returns to the office. We reviewed her diet and nutrition today at length. 02/13/2025 Weight loss (ICD-10 - R63.4) She has had a slow but steady weight loss over the last 2 years. Her body mass index is now 19. If the weight-loss continue she will be restaged for recurrent lung cancer. Plan Of Treatment Medication Medication Name Sig Start Date Stop Date Notes Alendronate Sodium 70 MG TAKE 1 TABLET B Y MOUTH ONCE A WEEK 30 MINUTES BEFORE THE FIRST FOOD, BEVERAGE OR MEDICATION OF THE DAY WITH PLAIN WATER. oxyCODONE HCl 5 MG 1 tablet as needed O rally every 6 hrs 02/18/2024 Vitamin B Complex - Orally Pantoprazole Sodium 20 MG 1 tablet Orally Once a day Atezolizumab 840 MG/14ML as directed Intravenous Acetaminophen 325 MG 1 tablet as needed Orally every 6 hrs 02/18/2024 Calcium 500 bid Vitamin D 50 MCG (2000 UT) 1 tablet Orally Once a day Advil 200 MG 1 tablet with food o r milk as needed Orally Three times a day Next Appt Details Follow Up: 2 Months, Reason: ov Provider Name:Sonido Mcdaniels , 10/30/2025 02:30:00 PM, [address] [place] [address] [address], [place], [address], Provider Name:Sonido Mcdaniels , 08/01/2026 02:00:00 PM, [address] [place] [address] [address], [place], [address], Progress Notes * Sherice MASSEY ADOB: 0 (64 yo F)Acc No.[id number]:02/13/2025 Patient: Sherice DE LOS SANTOS Provider: Carter Mcdaniels MD :1960 A ge:64 Y S ex:Female Date:02/13/2025 Address:[address] [place] [address] [id number] Subjective: * Chief Complaints: * P ortacath flushNon-small cell lung cancerMacrocytosisOsteoporosis * HPI: C OVID-19 Screening: He returns to the office periodically to flush her Port-A-Cath to maintain its function. If she needs chemotherapy again. He appears to continue to be in remission from her lung cancers. The port was in good condition today. It was flushed with heparin and saline and functioned well. She has been compliant with all of her medication. She is breathing room air comfortably. She has no new pain. She seems happy and well. Questions H ave you had any new onset fever, chills, cough, congestion, sore throat, shortness of breath, muscle aches? N o * ROS: G eneral/Constitutional: pain T horacic incisions, otherwise only normal aches and pains. C hills d enies. F atigue a dmits. F ever d enies. E NT: Decreased hearing m ild. R espiratory: Cough d enies. C ardiovascular: Chest pain with exertion d enies. D yspnea on exertion?denies. S hortness of breath w ith exertion. G astrointestinal: Constipation o ccasional. D ecreased appetite d enies. D iarrhea d enies. H eartburn d enies. N ausea d enies. R ectal bleeding d enies. V omiting d enies. H ematology: bruising [...] Depressed mood d enies. * Medical History: * Surgical History: l aparoscopic surgery for diverticulitis, 01/2009colonoscopy, one hyperplastic polyp, Dr. Stover 02/2011dental extractions in progress 2017colonoscopy, [facility], Dr. Adams, hematochezia, negative 2001Resection adenocarcinoma, right upper lobe 06/10/2021 [place] [facility] [place], Intertrochanteric fracture 01/18/2024Left upper lobe wedge resection non-small cell carcinoma October 2023Right hip replacement - not discussed No history * Hospitalization/Major Diagno stic Procedure: F MAJOR 9 days 01/2019Bilateral lung Nodule ib fracture esection spiculated lung lesion right upper lobe [facility] esection adenocarcinoma, left upper lobe 06/10/2022[place] [facility] [place]No history * Family History: F ather: 74 yrs, [...] ormer smoker S he was born in [place], [place]. She is with no children but has had several miscarriages. 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 Smoking - No, Alcohol - Not Discussed, Drug Use - Not Discussed, Diet - Not Discussed, Exercise - Not Discussed, Work Environment - Not Discussed, Living Situation - Not Discussed. Smoking: No, Work: [employer]. * Medications: T akingAlendronate Sodium 70 MG Tablet TAKE 1 TABLET BY MOUTH ONCE A WEEK 30 MINUTES BEFORE THE FIRST FOOD, BEVERAGE OR MEDICATION OF THE DAY WITH PLAIN WATER. oxyCODONE HCl 5 MG Tablet 1 tablet as needed Orally every 6 hrs Acetaminophen 325 MG Tablet 1 tablet as needed Orally every 6 hrs Calcium 500 , Notes to Pharmacist: bidVitamin D 50 MCG (2000 UT) Tablet 1 tablet Orally Once a day Advil 200 MG Tablet 1 tablet with food or milk as needed Orally Three times a day Vitamin B Complex - Tablet Orally Pantoprazole Sodium 20 MG Tablet Delayed Release 1 tablet Orally Once a day Atezolizumab 840 MG/14ML Solution as directed Intravenous Medication List reviewed and reconciled with the patientTaking Alendronate Sodium 70 MG Tablet TAKE 1 TABLET BY MOUTH ONCE A WEEK 30 MINUTES BEFORE THE FIRST FOOD, BEVERAGE OR MEDICATION OF THE DAY WITH PLAIN WATER. Taking oxyCODONE HCl 5 MG Tablet 1 tablet as needed Orally every 6 hrs Taking Acetaminophen 325 MG Tablet 1 tablet as needed Orally every 6 hrs Taking Calcium 500 , Notes to Pharmacist: bidTaking Vitamin D 50 MCG (2000 UT) Tablet 1 tablet Orally Once a day Taking Advil 200 MG Tablet 1 tablet with food or milk as needed Orally Three times a day Taking Vitamin B Complex - Tablet Orally Taking Pantoprazole Sodium 20 MG Tablet Delayed Release 1 tablet Orally Once a day Taking Atezolizumab 840 MG/14ML Solution as directed Intravenous Medication List reviewed and reconciled with the patient * Allergies: C odeine Sulfate: rash - Side EffectsSeasonale Objective: * Vitals: H t: 69, Wt: 134, BMI:19.79, BP: 122/74, HR: 116, Temp: 98.1, Ht-cm: 175.26, Wt- k.78. * P ast Orders: I maging:XR lumbar spine 2-3V (Order Date - 12/26/2024) (Performed Date - 12/26/2024) I maging:XR sacrum coccyx min 2V (Order Date - 12/26/2024) (Performed Date - 12/26/2024) * Examination: G eneral Examination: GENERAL APPEARANCE: p leasant, well nourished, well developed, in no acute distress, calm and relaxed, underweight, woman. HEAD: a traumatic, normocephalic. EYES: e jessie, [...] normal, no s3, or vascular bruits. LUNGS: , diminished breath sounds throughout, no wheezes, rales, rhonchi, good air movement, Thoracic incision is well-healed. BREASTS: N ot examined. ABDOMEN: b owel sounds normal, no ascites, no organomegaly, no mass. RECTAL EXAM: n ot examined. MUSCULOSKELETAL: e xtremities unremarkable, no clubbing, cyanosis or edema. PERIPHERAL PULSES: n ormal. NEUROLOGIC: a lert and oriented, cranial nerves 2-12 grossly intact, deep tendon reflexes 2+ symmetrical, motor strength normal upper and lower extremities, sensory exam intact. PSYCH: a lert, oriented. Assessment: * Assessment: 1. C hronic obstructive pulmonary disease, unspecified COPD type - J44.9 (Primary) ?Notes :She is currently comfortable breathing room air. Her COPD is controlled. She is up-to-date with her pulmonary physician. 2 . D egenerative disc disease, lumbar - M51.36 N otes :She reports her back pain has become more severe. There was limitation of range of motion of the lumbar spine with some muscle spasm. She will use heat and rest ibuprofen. She was referred to physical therapy and pain management. X-rays will be requested. 3 . H igh risk HPV infection - B97.7 N otes :She has not been to the print line feeder and she has not had a recent Pap smear. This was performed today. A pelvic examination and Pap smear rectal examination were done in the office. There are no significant findings. 4 . H istory of depression - Z86.59 N otes :She does not appear depressed today. She'll be observed carefully for recurrence. 5 . M acrocytosis without anemia - D75.89 N otes :Her mean cell volume is now 107 with a hematocrit of 45%. This will be investigated again. She is not anemic but may have a maturation delay.She will have vitamin B12 and folic acid and reticulocytes. 6 . A ge-related osteoporosis without current pathological fracture - M81.0? Notes :She is currently taking vitamin D and calcium. I have added alendronate. 7 . F ormer smoker - Z87.891 N otes :She has a plan to prevent relapse in times of stress and illness. 8 . N on-small cell cancer of right lung - C34.91 N otes :There was no sign of either the right or left non-small cell carcinoma relapsing. There is no sign of progressive disease.She underwent a right upper lobectomy January 2021 that showed a high-grade adenocarcinoma. In June 2022 and enlarging nodule in the left upper lobe was removed which was also adenocarcinoma thought to be metastatic. She seems to be free of malignancy at this time. 9 . S /P total right hip arthroplasty - Z96.641 N otes :Her right hip was replaced in January of this year. She is able to walk with only a cane now. She is progressing slowly with home physical therapy. 1 0. H ypothyroidism, unspecified - E03.9 N otes :She has been euthyroid. Comprehensive blood work with thyroid function tests have been ordered prior to her next visit. No change in her regimen has beenn made. 1 1. P ort-a-cath in place - Z95.828 N otes :The port was flushed with heparin and saline. It functioned well. 1 2. U nderweight - R63.6 N otes :She has been gradually losing weight. Her body mass index is now 19. She says her appetite is fair. No recurrence of the cancer has been demonstrated. I instructed her to gained 2 pounds when she returns to the office. We reviewed her diet and nutrition today at length. 1 3. W eight loss - R63.4 N otes :She has had a slow but steady weight loss over the last 2 years. H er body mass index is now 19. If the weight-loss continue she will be restaged for recurrent lung cancer. Plan: * Treatment: 2. O thers Continue [...] as needed, Orally, every 6 hrs. * Procedures: T cash skin over the port was cleaned with Betadine and alcohol. Sterile technique was used. A Chawla needle was used to access the port. It was flushed with saline and then with heparin solution. The needle was then withdrawn. No complcations occurred. A good blood return was obtained. * Procedure Codes: 9 6522 REFILL/MAINT PUMP/RESVR [id number] INJECTION HEPARIN SODIUM 10 [id number] SALINE SOLUTION * Preventive Medicine: Counseling: C are goal follow-up plan: Counseling for abnormal BMI given Y es Below Normal BMI Follow-up D ietary education for weight gain, Dietary management education, guidance, and counseling S moking/Tobacco Use Patient counseled on the dangers of tobacco use and urged to quit. 0 02/13/2025 COPD Care Plan: P atient Lifestyle Goals B e able to be more active with friends and family, Reduce number of ED and hospitalizations, Relieve symptoms and improve quality of life. T reatment Goals E at 4-5 small meals throughout the day, Eat a nutritious diet and increase water consumption to 6-8 glasses a day. B arriers n o barriers. S elf-Managment Goals G et an air purifier for the rooms you are in the most, Eat a healthy diet. * Follow Up: 2 Months (Reason: ov) * Images: * Sign off status: Completed true * Provider: Carter Mcdaniels MD Date: 0 02/13/2025 Generated for Rica howard/Karol/eTransmitting on: 1 04:45 PM EDT History and Physical Notes * HPI (History of Present Illness) Category Sub-Category Detail Notes COVID-19 Screening Questions Have you had any new onset fever, chills, cough, congestion, sore throat, shortness of breath, muscle aches?: No Examination Category Sub-Category Detail Notes General Examination GENERAL APPEARANCE: pleasant , well nourished, well developed, in no acute distress, calm and relaxed, underweight, woman HEAD: atraumatic, normocep halic EYES: eomi, perrla, anicte zoltan, conjugate EARS: normal NOSE: septum intact NECK/THYROID: no jugular venous di stention, no carotid bruit, thyroid normal HEART: no clicks, gallops, murmurs, or rubs, regular rhythm, S1, S2 normal, no s3, or vascular bruits LUNGS: , diminished breath sounds throughout, no wheezes, rales, rhonchi, good air movement, Thoracic incision is well-healed ABDOMEN: bowel sounds normal, no ascites, no organomegaly, no mass NEUROLOGIC: alert and oriented, cranial nerves 2-12 grossly intact, deep tendon reflexes 2+ symmetrical, motor strength normal upper and lower extremities, sensory exam intact SKIN: no suspicious lesion s, anicteric PERIPHERAL PULSES: normal BREASTS: Not examined MUSCULOSKELETAL: extremities unremark able, no clubbing, cyanosis or edema LYMPH NODES: no enlarged lymph no kt,spleen normal RECTAL EXAM: not examined PSYCH: alert, oriented ORAL CAVITY: normal, unremarkable
--- OUTSIDE RECORDS SUMMARY | 2025-03-28 11:30 | XMS_ITS ---
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 Sonido Mcdaniels III Primary Care Provider [phone] Allergies Allergen (clinical drug ingredient) Drug/Non Drug Allergy documented on EMR Reaction Allergy Type Onset Date Status Seasonale Unknown Drug Allergy Active codeine Codeine Sulfate rash Drug Allergy A ctive REASON FOR VISIT portacath flush, Non-small cell lright pat cancer, Depression, Macrocytosis, Osteoporosis, Hypothyroidism, COPD, Right hip replacement Medications Medication SIG (Take, Route, Frequency, Duration) Notes Start Date End Date Status Pantoprazole Sodium 20 MG 1 tablet Orall y Once a day Active Atezolizumab 840 MG/14ML as directed Intravenous Active Advil 200 MG 1 tablet with food o r milk as needed Orally Three times a day Active Vitamin B Complex - Orally Active Vitamin D 50 MCG (1999 UT) 1 tablet Oral ly Once a day Active Calcium 500 bid Active oxyCODONE HCl 5 MG 1 tablet as needed O rally every 6 hrs 02/18/2024 Active Acetaminophen 325 MG 1 tablet as needed Orally every 6 hrs 02/18/2024 Active Alendronate Sodium 70 MG TAKE 1 [...] Question Answer Notes Tobacco use: Former smoker Vital Signs Temperature 97.8 degrees Fahrenheit 03/28/20 25 Blood pressure systolic 134 mm Hg 03/28/20 25 Blood pressure diastolic 81 mm Hg 025 Heart Rate 80 /min 03/28/2025 Height 69 in 03/28/2025 Weight 137 lbs 03/28/2025 BMI 20.23 kg/m2 03/28/2025 Encounters Encounter Location Date Provider Diagnosis Sonido Mcdaniels III, MD [address] [place] [address] [place] [address] 03/28/2025 Sonido Mcdaniels Degenerative disc disease, lumbar M51.36 ; Non-small cell carcinoma of left lung C34.92 ; History of depression Z86.59 ; Macrocytosis without anemia D75.89 ; Non-small cell cancer of right lung C34.91 ; 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 There was limitation of range of motion of the lumbar spine with some muscle spasm. She will use heat and rest ibuprofen. She was referred to physical therapy and pain management. X-rays will be requested. 03/28/2025 Non-small cell carcinoma of left lung (ICD-10 - C34.92) The scars are well healed. There is no sign of disease recurrence. She is breathing comfortably. 03/28/2025 History of depression (ICD-10 - Z86.59) She does not appear depressed today. She'll be observed carefully for recurrence. 03/28/2025 Macrocytosis without anemia (ICD-10 - D75.89) Her mean cell volume is now 107 with a hematocrit of 45%. This will be investigated again. She is not anemic but may have a maturation delay.She will have vitamin B12 and folic acid and reticulocytes. 03/28/2025 Non-small cell cancer of right lung (ICD-10 [...] be free of malignancy at this time. 03/28/2025 Post-thoracotomy pain (ICD-10 - G89.12) The pain has resolved 03/28/2025 Hypothyroidism, unspecified (ICD-10 - E03.9) She has been euthyroid. Comprehensive blood work with thyroid function tests have been ordered prior to her next visit. No change in her regimen has beenn made. 03/28/2025 Age-related osteoporosis without current pathological fracture (ICD-10 - M81.0) She is currently taking vitamin D and calcium. I have added alendronate. 03/28/2025 Former smoker (ICD-10 - Z87.891) She has a plan to prevent relapse in times of stress and illness. 03/28/2025 Port-a-cath in place (ICD-10 - Z95.828) The port was flushed with heparin and saline. It functioned well. Plan Of Treatment Medication Medication Name Sig Start Date Stop Date Notes Pantoprazole Sodium 20 MG 1 tablet Orally Once a day Atezolizumab 840 MG/14ML as directed Intravenous Advil 200 MG 1 tablet with food o r milk as needed Orally Three times a day Vitamin B Complex - Orally Vitamin D 50 MCG (2000 UT) 1 tablet Orally Once a day Calcium 500 bid oxyCODONE HCl 5 MG 1 tablet as needed O rally every 6 hrs 02/18/2024 Acetaminophen 325 MG 1 tablet as needed Orally every 6 hrs 02/18/2024 Alendronate Sodium 70 MG TAKE 1 TABLET B Y MOUTH ONCE A WEEK 30 MINUTES BEFORE THE FIRST FOOD, BEVERAGE OR MEDICATION OF THE DAY WITH PLAIN WATER. Next Appt Details Follow Up: 6 Weeks, Reason: OV, Portacath Flush Provider Name:Sonido Mcdaniels , 10/30/2025 02:30:00 PM, [address] [place] [address] , [facility] [place], [facility] [place], [address], Provider Name:Sonido Mcdaniels , 08/01/2026 02:00:00 PM, [address] [place] [address] [address]IR[address] JAUREGUI, [place], [address], Progress Notes * Sherice MASSEY ADOB: 0 (64 yo F)Acc No.[id number]:03/28/2025 Patient: Sherice DE LOS SANTOS Provider: Carter Mcdaniels MD :1960 A ge:64 Y S ex:Female Date:03/28/2025 Address:[address] [place] [address] Constantine russell, [facility] [id number] Subjective: * Chief Complaints: * P ortacath flushNon-small cell lright pat cancerDepressionMacrocytosisOsteoporosisHypothyroidismCOPDRight hip replacement * HPI: C OVID-19 Screening: She returns to the office today for followup of her malignancy and to flush her port and to review her medical status. Since her last visit. Her pain has diminished and she feels healthy and well. She is breathing comfortably absent extreme exertion. She denies any cough. She is no longer smoking. Her right hip is now pain-free. She has been compliant with all of her medications. Her porrt was flushed today with saline and heparin without incident. It functioned well and was intact. Questions H ave you had any new onset fever, chills, cough, congestion, sore throat, shortness of breath, muscle aches? N o * ROS: G eneral/Constitutional: pain C ontinued mild pain and thoracotomy sites. C hills d enies. F atigue a dmits. F ever d enies. E NT: Decreased hearing d enies. R espiratory: Cough d enies. C ardiovascular: Chest pain with exertion d enies. D yspnea on exertion?with moderate activity. S hortness of breath w ith exertion. G astrointestinal: Constipation d enies. D ecreased [...] Dr. Stover 02/2011dental extractions in progress 2017colonoscopy, [facility], Dr. Adams, hematochezia, negative 2001Resection adenocarcinoma, right upper lobe 06/10/2021ight hip nailling at [facility] by Dr Yared MAYES, Intertrochanteric fracture 01/18/2024Left upper lobe wedge resection non-small cell carcinoma October 2023Right hip replacement - not discussed No history * Hospitalization/Major Diagno stic Procedure: F MAJOR 9 days 01/2019Bilateral lung Nodule ib fracture esection spiculated lung lesion right upper lobe [facility] esection adenocarcinoma, left upper lobe 06/10/2022ight hip replacement at [facility] 01/18/2024No history * Family History: F ather: [...] ormer smoker S he was born in [place], [place]. She is with no children but has had several miscarriages. 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 * Examination: G eneral Examination: GENERAL APPEARANCE: p leasant, well nourished, well developed, in no acute distress, calm and relaxed, elderly woman. HEAD: a traumatic, normocephalic. EYES: e jessie, perrla, anicteric, conjugate. EARS: n ormal. NOSE: s eptum intact. ORAL CAVITY: n ormal, unremarkable. NECK/THYROID: n o jugular venous distention, no carotid bruit, thyroid normal. LYMPH NODES: n o enlarged lymph nodes,spleen normal. SKIN: n o suspicious lesions, anicteric, Port-A-Cath right upper chest wall intact. HEART: n o clicks, gallops, murmurs, or rubs, regular rhythm, S1, S2 normal, no s3, or vascular bruits. LUNGS: B ilateral thoracotomy scars, diminished breath sounds throughout, scattered inspiratory wheezes. BREASTS: N ot examined. ABDOMEN: b owel [...] a lert, oriented. Assessment: * Assessment: 1. N on-small cell carcinoma of left lung - C34.92 (Primary) N otes :The scars are well healed. There is no sign of disease recurrence. She is breathing comfortably. 2 . D egenerative disc disease, lumbar - M51.36 N otes :She reports her back pain has beenbetter. There was limitation of range of motion of the lumbar spine with some muscle spasm. She will use heat and rest ibuprofen. She was referred to physical therapy and pain management. X-rays will be requested. 3 . H istory of depression - Z86.59 N otes :She does not appear depressed today. She'll be observed carefully for recurrence. 4 . M acrocytosis without anemia - D75.89 N otes :Her mean cell volume is now 107 with a hematocrit of 45%. This will be investigated again. She is not anemic but may have a maturation delay.She will have vitamin B12 and folic acid and reticulocytes. 5 . N on-small cell cancer of right [...] be free of malignancy at this time. 6 . P ost-thoracotomy pain - G89.12 N otes :The pain has resolved 7 . H ypothyroidism, unspecified - E03.9 N otes :She has been euthyroid. Comprehensive blood work with thyroid function tests have been ordered prior to her next visit. No change in her regimen has beenn made. 8 . A ge-related osteoporosis without current pathological fracture - M81.0? Notes :She is currently taking vitamin D and calcium. I have added alendronate. 9 . F ormer smoker - Z87.891 N otes :She has a plan to prevent relapse in times of stress and illness. 1 0. P ort-a-cath in place - Z95.828 N otes :The port was flushed with heparin and saline. It functioned well. Plan: * Treatment: 2. O thers Continue [...] as needed, Orally, every 6 hrs. * Procedure Codes: 9 6522 REFILL/MAINT PUMP/RESVR [id number] INJECTION HEPARIN SODIUM 10 [id number] SALINE SOLUTION * Preventive Medicine: Counseling: S moking/Tobacco Use Patient counseled on the dangers of tobacco use and urged to quit. 0 03/28/2025 COPD Care Plan: P atient Lifestyle Goals B e able to be more active with friends and family, Reduce number of ED and hospitalizations, Relieve symptoms and improve quality of life. T reatment Goals E xercise to help whole body, including lungs, Eat a nutritious diet and increase water consumption to 6-8 glasses a day, Eat 4-5 small meals throughout the day. B arriers n o barriers. S elf-Managment Goals G et an air purifier for the rooms you are in the most. * Follow Up: 6 Weeks (Reason: OV, Portacath Flush) * Images: * Sign off status: Completed true * Provider: Carter Mcdaniels MD Date: 0 03/28/2025 Generated for Yell.rui ng/Faarturo/eTransmitting on: 1 04:46 PM EDT History and Physical Notes * HPI (History of Present Illness) Category Sub-Category Detail Notes COVID-19 Screening Questions Have you had any new onset fever, chills, cough, congestion, sore throat, shortness of breath, muscle aches?: No Examination Category Sub-Category Detail Notes General Examination GENERAL APPEARANCE: pleasant , well nourished, well developed, in no acute distress, calm and relaxed, elderly woman HEAD: atraumatic, normocep halic EYES: eomi, perrla, anicte zoltan, conjugate EARS: normal NOSE: septum intact NECK/THYROID: no jugular venous di stention, no carotid bruit, thyroid normal HEART: no clicks, gallops, murmurs, or rubs, regular rhythm, S1, S2 normal, no s3, or vascular bruits LUNGS: Bilateral thoracotom y scars, diminished breath sounds throughout, scattered inspiratory wheezes ABDOMEN: bowel sounds normal, no ascites, no organomegaly, no mass NEUROLOGIC: alert and oriented, cranial nerves 2-12 grossly intact, deep tendon reflexes 2+ symmetrical, motor strength normal upper and lower extremities, sensory exam intact SKIN: no suspicious lesion s, anicteric, Port-A-Cath right upper chest wall intact PERIPHERAL PULSES: normal BREASTS: Not examined MUSCULOSKELETAL: extremities unremark able, no clubbing, cyanosis or edema LYMPH NODES: no enlarged lymph no kt,spleen normal RECTAL EXAM: not examined PSYCH: alert, oriented ORAL CAVITY: normal, unremarkable
--- OUTSIDE RECORDS SUMMARY | 2025-05-09 13:30 | XMS_ITS ---
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 Soindo Mcdaniels III Primary Care Provider [phone] Allergies Allergen (clinical drug ingredient) Drug/Non Drug Allergy documented on EMR Reaction Allergy Type Onset Date Status Seasonale Unknown Drug Allergy Active codeine Codeine Sulfate rash Drug Allergy A ctive REASON FOR VISIT portacath flush Medications Medication SIG (Take, Route, Frequency, Duration) Notes Start Date End Date Status oxyCODONE HCl 5 MG 1 tablet as needed O rally every 6 hrs 02/18/2024 Active Acetaminophen 325 MG 1 tablet as needed Orally every 6 hrs 02/18/2024 Active Alendronate Sodium 70 MG TAKE 1 TABLET B Y MOUTH ONCE A WEEK 30 MINUTES BEFORE THE FIRST FOOD, BEVERAGE OR MEDICATION OF THE DAY WITH PLAIN WATER. Active Pantoprazole Sodium 20 MG 1 tablet Orall y Once a day Active Atezolizumab 840 MG/14ML as directed Intravenous Active Advil 200 MG 1 tablet with food o r milk as needed Orally Three times a day Active Vitamin B Complex - Orally Active Calcium 500 bid Active Vitamin D 50 MCG (1999 UT) 1 tablet Oral ly Once a day Active Social History Tobacco Use: Social History Observation Description Date Details (start date - stop date) Former Smoker NA - NA Sex Assigned At : Social History Observation Description Sex Assigned At Female Tobacco Control (Standard) Question Answer Notes Tobacco use: Former smoker Encounters Encounter Location Date Provider Diagnosis Sonido Mcdaniels III, MD [address] [place] [address] [address] [place] [address] 05/09/2025 Sonido Mcdaniels Degenerative disc disease, lumbar M51.36 Assessments Encounter Date Diagnosis (ICD Code) Assessment Notes Treat ment Notes Treatment Clinical Notes 05/09/2025 Degenerative disc disease, lumbar (ICD-10 - M51.36) She reports her back pain has beenbetter. There was limitation of range of motion of the lumbar spine with some muscle spasm. She will use heat and rest ibuprofen. She was referred to physical therapy and pain management. X-rays will be requested. Plan Of Treatment Medication Medication Name Sig Start Date Stop Date Notes oxyCODONE HCl 5 MG 1 tablet as needed O rally every 6 hrs 02/18/2024 Acetaminophen 325 MG 1 tablet as needed Orally every 6 hrs 02/18/2024 Alendronate Sodium 70 MG TAKE 1 TABLET B Y MOUTH ONCE A WEEK 30 MINUTES BEFORE THE FIRST FOOD, BEVERAGE OR MEDICATION OF THE DAY WITH PLAIN WATER. Pantoprazole Sodium 20 MG 1 tablet Orally Once a day Atezolizumab 840 MG/14ML as directed Intravenous Advil 200 MG 1 tablet with food o r milk as needed Orally Three times a day Vitamin B Complex - Orally Calcium 500 bid Vitamin D 50 MCG (2000 UT) 1 tablet Orally Once a day Next Appt Details Provider Name:Sonido Mcdaniels , 10/30/2025 02:30:00 PM, [address] [place] [address] [address], [place], [address], Provider Name:Sonido Mcdaniels , 08/01/2026 02:00:00 PM, [address] [place] [address] [address], [place], [address], Progress Notes * Sherice MASSEY ADOB: 0 (65 yo F)Acc No.[id number]:05/09/2025 Patient: Katie CAMERON, Sherice Alfred Provider: Carter Mcdaniels MD :1960 A ge:64 Y S ex:Female Date:05/09/2025 Address:[address] [place] [address] [id number] Subjective: * Chief Complaints: * 1 . Portacath flush. * ROS: G eneral/Constitutional: pain o nly [...] 25, 2020, multiple right- sided rib fractures, [id number] adenocarcinoma right upper lobe January 2021, pT?N2M0 adenocarcinoma left upper lobe June 10, 2022, T11 compression fracture April 2023, 01/18/2024 right hip replacement at [facility] Dr Yared MAYES, Former smoker, Fractured Back - Occurred during chemotherapy in 2022, Broken Ribs - Not Discussed, Right Hip Replacement - Not Discussed, Lung Cancer, Back Pain. * Surgical History: l aparoscopic surgery for diverticulitis, 01/2009, colonoscopy, one hyperplastic polyp, Dr. Stover 02/2011, dental extractions in progress 2017, colonoscopy, [facility], Dr. Adams, hematochezia, negative 2001, Resection adenocarcinoma, right upper lobe 06/10/2021, right hip nailling at [facility] by Dr Yared MAYES, Intertrochanteric fracture 01/18/2024, Left upper lobe wedge resection non-small cell carcinoma October 2023, Right hip replacement - not discussed , No history . * Hospitalization/Major Diagno stic Procedure: F MAJOR 9 days 01/2019, Bilateral lung Nodule 11/2020, rib fracture 11/2020, resection spiculated lung lesion right upper lobe [facility] 01/2021, Resection adenocarcinoma, left upper lobe 06/10/2022, right hip replacement at [facility] 01/18/2024, No history . * Family History: [...] ormer smoker S he was born in [place], [place]. She is with no children but has had several miscarriages. 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 , Taking oxyCODONE HCl 5 MG Tablet 1 tablet as needed Orally every 6 hrs , Taking Acetaminophen 325 MG Tablet 1 [...] 840 MG/14ML Solution as directed Intravenous , Medication List reviewed and reconciled with [...] Orally, every 6 hrs. * Procedures: T he skin over the port was cleaned with Betadine and alcohol. Sterile technique was used. A Chawla needle was used to access the port. It was flushed with saline and then with heparin solution. The needle was then withdrawn. No complcations occurred. A good blood return was obtained. * Procedure Codes: 9 6522 REFILL/MAINT PUMP/RESVR SYST, J1642 INJECTION HEPARIN SODIUM 10 UNITS, J7030 SALINE SOLUTION * Images: * The named appointment provid er may or may not be the originator of this progress note, and it is not deemed complete until electronically signed by the appointment provider. Sign off status: Pending * Provider: Carter Mcdaniels MD Date: 0 05/09/2025 Generated for Rica howard/Karol/Alessandraitting on: 1 04:44 PM EDT History and Physical Notes * Examination Category Sub-Category Detail Notes General Examination [...]
--- OUTSIDE RECORDS SUMMARY | 2025-07-31 06:00 | XMS_ITS ---
Author Organization Sonido Mcdaniels III, MD Address [address] [place] [address] [place] [address] Care Team Providers Care Optical Goods Drilling Machine Operator Name Role Phone Dr. Sonido Mcdaniels III Primary Care Provider [phone] Allergies Allergen (clinical drug ingredient) Drug/Non Drug Allergy documented on EMR Reaction Allergy Type Onset Date Status Seasonale Unknown Drug Allergy Active codeine Codeine Sulfate rash Drug Allergy A ctive Reason For Referral Reason Due for Colonoscopy Consult and Treat Diagnosis 1 Screen for colon can cer (Z12.11) Referral Organization Sonido Mcdaniels III, MD Referring Provider First Name Sonido Referring Provider Last Name Arslan Referring Provider Speciality Internal M edicine Referred Provider IVANNA WHELAN Referred Provider Specialty Gastroentero logy General Notes DKaylene 08/02/2025 10:43:59 AM > referral faxed with progress note Referral Priority Routine REASON FOR VISIT Annual Exam Medications Medication SIG (Take, Route, Frequency, Duration) Notes Start Date End Date Status Pantoprazole Sodium 20 MG 1 tablet Orall y Once a day Active Atezolizumab 840 MG/14ML as directed Intravenous Active Vitamin B Complex - Orally Active Vitamin D 50 MCG (1999 UT) 1 tablet Oral ly Once a day Active Advil 200 MG 1 tablet with food o r milk as needed Orally Three times a day Active Alendronate Sodium 70 MG TAKE 1 TABLET B Y MOUTH ONCE A WEEK 30 MINUTES BEFORE THE FIRST FOOD, BEVERAGE OR MEDICATION OF THE DAY WITH PLAIN WATER. Active oxyCODONE HCl 5 MG 1 tablet as needed O rally every 6 hrs 02/18/2024 Active Acetaminophen 325 MG 1 tablet as needed Orally every 6 hrs 02/18/2024 Active Calcium 500 bid Active Social History Tobacco Use: Social History Observation Description Date Details (start date - stop date) Former Smoker NA - NA Sex Assigned At : Social History Observation Description Sex Assigned At Female Tobacco Control (Standard) Question Answer Notes Tobacco use: Former smoker How long has it been since you last smoked? 1-5 years Additional Findings: Tobacco non-user Ex-cigaret te smoker AUDIT-C (Standard) Question Answer Notes Did you have a drink containing alcohol in the p ast year? No Points 0 Interpretation Negative Problems Problem Type SNOMED Code ICD Code Onset Dates Problem Status W/U Status Risk Notes Problem [id number] Underweight (R63.6) Active confirmed She has lost weight and her BMI is now in the underweight range. We discussed her diet and nutrition at length today.Her thyroid function tests will be monitored. 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 There was limitation of range of motion of the lumbar spine with some muscle spasm. She will use heat and rest ibuprofen. She was referred to physical therapy and pain management. 07/31/2025 Non-small cell cancer of right lung (ICD-10 [...] be free of malignancy at this time. 07/31/2025 High risk HPV infection (ICD-10 - B97.7) She has not been to the public relations account supervisor and she has not had a recent Pap smear. This was performed today. A pelvic examination and Pap smear rectal examination were done in the office. There are no significant findings. 07/31/2025 Intramural leiomyoma of uterus (ICD-10 - D25.1) She has been referred to [facility] for management of her reproductive health. 07/31/2025 History of depression (ICD-10 - Z86.59) She does not appear depressed today. She'll be observed carefully for recurrence. 07/31/2025 Non-small cell carcinoma of left lung (ICD-10 - C34.92) The scars are well healed. There is no sign of disease recurrence. She is breathing comfortably. 07/31/2025 Macrocytosis without anemia (ICD-10 - D75.89) Her mean cell volume is now 107 with a hematocrit of 45%. This will be investigated again. She is not anemic but may have a maturation delay.She will have vitamin B12 and folic acid and reticulocytes. 07/31/2025 Post-thoracotomy pain (ICD-10 - G89.12) The pain has resolved 07/31/2025 Port-a-cath in place (ICD-10 - Z95.828) The port was flushed with heparin and saline. It functioned well. 07/31/2025 Former smoker (ICD-10 - Z87.891) She has a plan to prevent relapse in times of stress and illness. 07/31/2025 Underweight (ICD-10 - R63.6) She has lost weight and her BMI is now in the underweight range. We discussed her diet and nutrition at length today.Her thyroid function tests will be monitored. Plan Of Treatment Medication Medication Name Sig Start Date Stop Date Notes Pantoprazole Sodium 20 MG 1 tablet Orally Once a day Atezolizumab 840 MG/14ML as directed Intravenous Vitamin B Complex - Orally Vitamin D 50 MCG (2000 UT) 1 tablet Orally Once a day Advil 200 MG 1 tablet with food o r milk as needed Orally Three times a day Alendronate Sodium 70 MG TAKE 1 TABLET B Y MOUTH ONCE A WEEK 30 MINUTES BEFORE THE FIRST FOOD, BEVERAGE OR MEDICATION OF THE DAY WITH PLAIN WATER. oxyCODONE HCl 5 MG 1 tablet as needed O rally every 6 hrs 02/18/2024 Acetaminophen 325 MG 1 tablet as needed Orally every 6 hrs 02/18/2024 Calcium 500 bid Pending Test Test Name Order Date PROFILE, FASTING (COMPREHENSIVE METABOLI C) 07/31/2025 CBC w DIFF 07/31/2025 Lipid Panel 07/31/2025 Vitamin D 25-OH Total 07/31/2025 Referrals Referral Date Details 07/31/2025 07/31/2025, Due for Colonoscopy Consult and Treat, IVANNA WHELAN Next Appt Details Follow Up: 3 Months, Reason: Port Flush Review Labs Provider Name:Sonido Mcdaniels , 10/30/2025 02:30:00 PM, [address] [place] [address] MIR[address] JAUREGUI, [place], [address], Provider Name:Sonido Mcdaniels , 08/01/2026 02:00:00 PM, [address] [place] [address] MIRIAM JAUREGUI, [place], [address], Progress Notes * Sherice MASSEY ADOB: 0 (65 yo F)Acc No.[id number]:07/31/2025 Progress Notes Patient: Sherice DE LOS SANTOS Provider: Carter Mcdaniels MD :1960 A ge:65 Y S ex:Female Date:07/31/2025 Address:[address] [place] [address] [id number] Subjective: * Chief Complaints: * A nnual Exam * HPI: D epression Screening: She returns to the office at the age of 65 for her annual physical examination.Her lung cancer remains in remission. She is due for a colonoscopy and was referred for the same. She is short of breath with exeertion but is able to conduct all of the activities of daily living without impairment.She has continued to work full-time.She has been compliant with her medications and treatment. Her low back pain is present but mild and constant. She is not smoking. Her Port-A-Cath remains in place and was flushed today with heparin and saline. PHQ-9 L ittle interest or pleasure in doing things?Not at all F eeling down, depressed, or hopeless N ot at all T rouble falling or staying asleep, or sleeping too much S everal days F eeling tired or having little energy N early every day P oor appetite or overeating N ot at all F eeling bad about yourself or that you are a failure, or have let yourself or your family down N ot at all T rouble concentrating on things, such as reading the newspaper or watching television N ot at all M oving or speaking so slowly that other people could have noticed; or the opposite, being so fidgety or restless that you have been moving around a lot more than usual N ot at all T houghts that you would be better off or of hurting yourself in some way N ot at all T otal Score 4 I nterpretation M inimal Depression C OVID-19 Screening: back sore, heating pad works full tiem, sob with ex, no relapse. Questions H ave you had any new onset fever, chills, cough, congestion, sore throat, shortness of breath, muscle aches? N o F all Risk Screening: Fall History H ave you had any falls with injury in the past year? N o H ave you had two or more falls in the past year? N o F all Risk Assessment: N o falls in the past year S MAIN Questions: SDOH Questions I n the past year have you been worried about losing your housing? N o I n the past year have you or any family members you live with been unable to get any of the following when it was really needed? Check all that apply: N one * ROS: G eneral/Constitutional: pain o nly [...] Dr. Stover 02/2011dental extractions in progress 2017colonoscopy, [facility], Dr. Adams, hematochezia, negative 2002Resection adenocarcinoma, right upper lobe 06/10/2021ight hip nailling at [facility] by Dr Yared MAYES, Intertrochanteric fracture 01/18/2024Left upper lobe wedge resection non-small cell carcinoma October 2023Right hip replacement - not discussed No history * Hospitalization/Major Diagno stic Procedure: F MAJOR 9 days 01/2019Bilateral lung Nodule ib fracture esection spiculated lung lesion right upper lobe [facility] esection adenocarcinoma, left upper lobe 06/10/2022ight hip replacement at [facility] 01/18/2024No history * Family History: F ather: 74 yrs, Head and neck cancer, coronary artery disease, from ruptured bowel caused by chemotherapy, diagnosed with CVD. M other: 47 yrs, Colostomy, urostomy, colon cancer, diagnosed with Cancer. S ibjaswinder: alive. P steffany aunt: alive, diagnosed with Cancer. 1 brother(s) [...] (Standard) T obacco use: F ormer smoker H ow long has it been since you last smoked??1-5 years A dditional Findings: Tobacco non-user E x-cigarette smoker D rugs/Alcohol: D rugs H ave you used drugs other than those for medical reasons in the past 12 months? N o D rug/Alcohol: A LATNOIA-C (Standard) D id you have a drink containing alcohol in the past year? N o P oints 0 I nterpretation N egative S he was born in [place], [place]. She is with no children but has had several miscarriages. 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 * Examination: G eneral Examination: GENERAL APPEARANCE: p leasant, well nourished, well developed, in no acute distress, calm and relaxed: underweight: woman. HEAD: a traumatic, normocephalic. EYES: e [...] normal, no s3, or vascular bruits. LUNGS: T horacotomy scars,: good air movement: diminished breath sounds throughout: rhonchi on the RIGHT: rhonchi on the LEFT. BREASTS: no masses palpable bilaterally. ABDOMEN: b [...] Assessment: * Assessment: 1. N on-small cell cancer of right lung - C34.91 (Primary) N otes :There was no sign of [...] be free of malignancy at this time. 2 . D egenerative disc disease, lumbar - M51.36 N otes :She reports her back pain has been better. There was limitation of range of motion of the lumbar spine with some muscle spasm. She will use heat and rest ibuprofen. She was referred to physical therapy and pain management. 3. H igh risk HPV infection - B97.7 N otes :She has not been to the public relations account supervisor and she has not had a recent Pap smear. This was performed today. A pelvic examination and Pap smear rectal examination were done in the office. There are no significant findings. 4 . I ntramural leiomyoma of uterus - D25.1 N otes :She has been referred to [facility] for management of her reproductive health. 5 . H istory of depression - Z86.59 N otes :She does not appear depressed today. She'll be observed carefully for recurrence. 6 . N on-small cell carcinoma of left lung - C34.92 N otes :The scars are well healed. There is no sign of disease recurrence. She is breathing comfortably. 7 . M acrocytosis without anemia - D75.89 N otes :Her mean cell volume is now 107 with a hematocrit of 45%. This will be investigated again. She is not anemic but may have a maturation delay.She will have vitamin B12 and folic acid and reticulocytes. 8 . P ost-thoracotomy pain - G89.12 N otes :The pain has resolved 9 . P ort-a-cath in place - Z95.828 N otes :The port was flushed with heparin and saline. It functioned well. 1 0. F ormer smoker - Z87.891 N otes :She has a plan to prevent relapse in times of stress and illness. 1 1. U nderweight - R63.6 N otes :She has lost weight and her BMI is now in the underweight range. We discussed her diet and nutrition at length today.Her thyroid function tests will be monitored. Plan: * Treatment: 2. O thers Continue [...] tablet as needed, Orally, every 6 hrs. Referral To:IVANNA WHELAN Gastroenterology Reason:Due for Colonoscopy Consult and Treat * Labs: * L ab: PROFILE, FASTING (COMPREHENSIVE METABOLIC) L ab: CBC w DIFF L ab: Lipid Panel L ab: Vitamin D 25-OH Total * Procedure Codes: 9 6522 REFILL/MAINT PUMP/RESVR SYST * Preventive Medicine: Counseling: C are goal follow-up plan: Counseling for abnormal BMI given Y es Below Normal BMI Follow-up D ietary education for weight gain, Dietary management education, guidance, and counseling, Feeding regime, Lifestyle education regarding diet, Nutrition / feeding management, Prescribed diet education, Special diet education, Intervention, Order not done: Medical or Other reason not done S moking/Tobacco Use Patient counseled on the dangers of tobacco use and urged to quit. 0 07/31/2025 COPD Care Plan: P atient Lifestyle Goals R elieve symptoms and improve quality of life, Reduce number of ED and hospitalizations, Be able to be more active with friends and family. T reatment Goals E at a nutritious diet and increase water consumption to 6-8 glasses a day, Exercise to help whole body, including lungs, Eat 4-5 small meals throughout the day. B arriers n o barriers. S elf-Managment Goals E at a healthy diet, Get an air purifier for the rooms you are in the most, Exercise at least 3xs per week for at least 30 mins.? * Follow Up: 3 Months (Reason: Port Flush Review Labs) * Images: * Sign off status: Completed true * Provider: Carter Mcdaniels MD Date: 0 07/31/2025 Generated for Rica howard/Karol/Abdi on: 04:46 PM EDT History and Physical Notes * HPI (History of Present Illness) Category Sub-Category Detail Notes Depression Screening PHQ-9 Little inte rest or pleasure in doing things: Not at all Feeling down, depressed, or hopeless: No t at all Trouble falling or staying asleep, or sl eeping too much: Several days Feeling tired or having little energy: N early every day Poor appetite or overeating: Not at all Feeling bad about yourself o r that you are a failure, or have let yourself or your family down: Not at all Trouble concentrating on thi ngs, such as reading the newspaper or watching television: Not at all Moving or speaking so slowly that other people could have noticed; or the opposite, being so fidgety or restless that you have been moving around a lot more than usual: Not at all Thoughts that you would be b dang off or of hurting yourself in some way: Not at all Total Score: 4 Interpretation: Minimal Depression Fall Risk Screening Fall History Have you had any falls with injury in the past year?: No Have you had two or more falls in the year?: No Fall Risk Assessment:: No falls in the year COVID-19 Screening Questions Have you had any new onset fever, chills, cough, congestion, sore throat, shortness of breath, muscle aches?: No SDOH Questions SDOH Questions In the past year have you been worried about losing your housing?: No In the past year have you or any family members you live with been unable to get any of the following when it was really needed? Check all that apply:: None Examination Category Sub-Category Detail Notes General Examination GENERAL APPEARANCE: pleasant , well nourished, well developed, in no acute distress, calm and relaxed: underweight: woman HEAD: atraumatic, normocep halic EYES: eomi, perrla, anicte zoltan, conjugate EARS: normal NOSE: septum intact NECK/THYROID: no jugular venous di stention, no carotid bruit, thyroid normal HEART: no clicks, gallops, murmurs, or rubs, regular rhythm, S1, S2 normal, no s3, or vascular bruits LUNGS: Thoracotomy scars,: good air movement: diminished breath sounds throughout: rhonchi on the RIGHT: rhonchi on the LEFT ABDOMEN: bowel sounds normal, no ascites, no [...] PSYCH: alert, oriented ORAL CAVITY: normal, unremarkable Consultation Request Notes Referral Date Referring Provider Referred Provider Not es 07/31/2025 Sonido Mcdaniels TUYYAB Due for [place] noscopy Consult and Treat
--- OUTSIDE RECORDS SUMMARY | 2025-08-31 06:26 | XMS_ITS ---
Author Organization Sonido Mcdaniels III, MD Address [address] [place] [address] [place] [address] Care Team Providers Care Lead Inspector Name Role Phone Dr. Sonido Mcdaniels III Primary Care Provider REASON FOR VISIT Needs call back from Social History Sex Assigned At : Social History Observation Description Sex Assigned At Female Encounters Encounter Location Date Provider Diagnosis Sonido Mcdaniels III, MD [address] [place] [address] [place] [address] 08/31/2025 Sonido Mcdaniels Plan Of Treatment Next Appt Details Provider Name:Sonido Mcdaniels , 10/30/2025 02:30:00 PM, [address] [place] [address] [place], [address], Provider Name:Sonido Mcdaniels , 08/01/2026 02:00:00 PM, [address] [place] [address] [place], [address], Progress Notes * MASSEYSherice ADOB: 0 (65 yo F)Acc No.[id number]:08/31/2025 Patient: Sherice DE LOS SANTOS :1960 A ge:65 Y S ex:Female Address:[address] [place] [address] [place], [address] * true * Date: Generated for Printi ng/Karol/Abdi on: 1 04:47 PM EDT
--- OUTSIDE RECORDS SUMMARY | 2025-08-31 08:47 | XMS_ITS ---
Author Organization Sonido Mcdaniels III, MD Address [address] [place] [address] [place] [address] Care Team Providers Care Tank Maker Wood Name Role Phone Dr. Sonido Mcdaniels III Primary Care Provider Medications Medication SIG (Take, Route, Fr equency, Duration) Notes Start Date End Date Status Ondansetron HCl 8 MG 1 tablet if needed Orally four times a day for 7 days 08/31/2025 Active Social History Sex Assigned At : Social History Observation Description Sex Assigned At Female Encounters Encounter Location Date Provider Diagnosis Sonido Mcdaniels III, MD [address] [place] [address] [place] [address] 08/31/2025 Sonido Mcdaniels Plan Of Treatment Medication Medication Name Sig Start Date Stop Date Notes Ondansetron HCl 8 MG 1 tablet if needed Orally four times a day for 7 days 08/31/2025 Next Appt Details Provider Name:Sonido Mcdaniels , 10/30/2025 02:30:00 PM, [address] [place] [address] [place], [address], Provider Name:Sonido Mcdaniels , 08/01/2026 02:00:00 PM, [address] [place] [address] [place], [address], Progress Notes * Sherice MASSEY ADOB: 0 (65 yo F)Acc No.[id number]:08/31/2025 Patient: Sherice DE LOS SANTOS :1960 A ge:65 Y S ex:Female Address:[address] [place] [address] Constantine [place]ussell, [place], [address] * Refills Start Ondansetron HCl Tablet, 8 MG, Orally, 28 Tablet, 1 tablet if needed, four times a day, 7 days, Refills=3 * true * Date: Generated for Rica howard/Karol/Alessandraitting on: 1 04:46 PM EDT
--- OUTSIDE RECORDS SUMMARY | 2025-09-01 05:21 | XMS_ITS ---
Author Organization Sonido Mcdaniels III, MD Address [address] [place] [address] [place] [address] Care Team Providers Care Compliance Review Specialist Name Role Phone Dr. Sonido Mcdaniels III Primary Care Provider [phone] REASON FOR VISIT told patient to call Social History Sex Assigned At : Social History Observation Description Sex Assigned At Female Encounters Encounter Location Date Provider Diagnosis Sonido Mcdaniels III, MD [address] [place] [address] [place] [address] 09/01/2025 Sonido Mcdaniels Plan Of Treatment Next Appt Details Provider Name:Sonido Mcdaniels , 10/30/2025 02:30:00 PM, [address] [place] [address] [place], [address], Provider Name:Sonido Mcdaniels , 08/01/2026 02:00:00 PM, [address] [place] [address] [place], [address], Progress Notes * Sherice MASSEY ADOB: 0 (65 yo F)Acc No.[id number]:09/01/2025 Patient: Sherice DE LOS SANTOS :1960 A ge:65 Y S ex:Female Address:[address] [place] [address] [place], [address] * true * Date: Generated for Rica howard/Karol/Abdi on: 1 04:44 PM EDT
--- NOTE | ~2025-09-04 | XR_ITS ---
EXAMINATION: XR SHOULDER 2 OR MORE VIEWS RIGHT HISTORY: PAIN COMPARISON: Comparison is made with the prior examination dated 11/25/2020. FINDINGS: Five views of the right shoulder are submitted. Osseous mineralization is normal. There is a nondisplaced fracture of the greater tuberosity. There is no dislocation. The glenohumeral joint is maintained. There is moderate osteoarthritis of the AC joint, with joint space narrowing and osteophyte formation. The soft tissues are unremarkable. XR/XR shoulder RT min 2V IMPRESSION: Nondisplaced fracture of the greater tuberosity of the humerus. Please correlate with trauma history. If there is no history of trauma, MRI is suggested to evaluate for a pathologic fracture. Electronically signed by: Sonido Diaz MD 09/04/2025 02:12 PM EDT
--- NOTE | ~2025-09-04 | XR_ITS ---
EXAMINATION: XR WRIST, RIGHT CLINICAL INFORMATION: PAIN COMPARISON: 08/15/2019. TECHNIQUE: PA, lateral, oblique, and scaphoid views of the right wrist. FINDINGS: No fracture, dislocation, or suspicious bone lesion. There is normal alignment. 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 Mild changes in the STT joints. Joint spaces otherwise preserved. Mild negative ulnar variance. No soft tissue abnormalities. XR/XR wrist RT 2V IMPRESSION: 1. No acute bony findings of the right wrist. 2. Severe degenerative arthrosis in the first CMC joint. Electronically signed by: Gold Rosen MD 09/04/2025 02:09 PM EDT
--- NOTE | ~2025-09-04 | XR_ITS ---
EXAMINATION: XR ELBOW 3 VIEWS RIGHT HISTORY: PAIN COMPARISON: There are no prior studies available for comparison. FINDINGS: Three views of the right elbow are submitted. Osseous mineralization is normal. There is no fracture or dislocation. The joint spaces are preserved. The soft tissues are unremarkable. There is no joint effusion. XR/XR elbow RT min 3V IMPRESSION: Unremarkable examination of the right elbow. Electronically signed by: Sonido Diaz MD 09/04/2025 02:08 PM EDT
--- OUTSIDE RECORDS SUMMARY | 2025-09-04 05:24 | XMS_ITS ---
Author Organization Sonido Mcdaniels III, MD Address [address] [place] [address] [place] [address] Care Team Providers Care Baseball Pitcher Name Role Phone Dr. Sonido Mcdaniels III Primary Care Provider [phone] Results Component Value Reference Range Notes XR wrist RT 2V (Not yet revi ewed by provider) Interpretation: Performing Lab: Notes/Report: [facility] [address] [place] [address] XRay Report Signed Patient: Sherice Massey MR#: [id number] 10 : 1960 Acct:[id number] Age/Sex: 65 / F ADM Date: 09/04/25 Loc: HO.XRAY Attending Dr: Sonido Mcdaniels MD Ordering Physician: Sonido Mcdaniels MD Date of Service: 09/04/25 Procedure(s): XR wrist RT 2V Accession Number(s): [id number] cc: Sonido Mcdaniels MD Reason for Exam: PAIN EXAMINATION: XR WRIST, RIGHT CLINICAL INFORMATION: PAIN COMPARISON: 08/15/2019. TECHNIQUE: PA, lateral, oblique, and scaphoid views of the right wrist. FINDINGS: No fracture, dislocation, or suspicious bone lesion. There is normal alignment. 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 Mild changes in the STT joints. Joint spaces otherwise preserved. Mild negative ulnar variance. No soft tissue abnormalities. XR/XR wrist RT 2V IMPRESSION: 1. No acute bony findings of the right wrist. 2. Severe degenerative arthrosis in the first CMC joint. Electronically signed by: Gold Rosen MD 09/04/2025 02:09 PM EDT RP Dictated By: Gold Rosen MD Signed By: <Electronically signed by Gold Rosen MD in OV> 09/04/25 1409 DD/ 1345 TD/TT: 09/04/25 1400 Smoking Pipes Cleaner: [address] [address] XRay Report Signed Patient: Trang Massey MR#: [id number] 10 : 1960 Acct:[id number] Age/Sex: 65 / F ADM Date: 09/04/25 Loc: HO.XRAY Attending Dr: Sonido Mcdaniels MD Ordering Physician: Sonido Mcdaniels MD Date of Service: 09/04/25 Procedure(s): XR wrist RT 2V Accession Number(s): [id number] cc: Sonido Mcdaniels MD Reason for Exam: PAIN EXAMINATION: XR WRIST, RIGHT CLINICAL INFORMATION: PAIN COMPARISON: 08/15/2019. TECHNIQUE: PA, lateral, oblique , and scaphoid views of the right wrist. FINDINGS: No fracture, disloca tion, or suspicious bone lesion. There is normal alignment. 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 Mild changes in the STT joints. Join t spaces otherwise preserved. Mild negative ulnar variance. No soft tissue abnormalities. X R/XR wrist RT 2V IMPRESSION: 1. No acute bony fin dings of the right wrist. 2. Severe degenerati ve arthrosis in the first CMC joint. Electronically gladis d by: Gold Rosen MD 09/04/2025 02:09 PM EDT RP Dictated By: Gold Rosen MD Signed By: <Electron icatrice signed by Gold Rosen MD in OV> 09/04/25 1409 DD/ 1345 TD/TT: 09/04/25 1400 Smoking Pipes Cleaner: XR elbow RT min 3V (Not yet reviewed by provider) Interpretation: Performing Lab: Notes/Report: [address] [address] XRay Report Signed Patient: Sherice Massey MR#: [id number] 10 : 1960 Acct:[id number] Age/Sex: 65 / F ADM Date: 09/04/25 Loc: HO.XRAY Attending Dr: Sonido Mcdaniels MD Ordering Physician: Sonido Mcdaniels MD Date of Service: 09/04/25 Procedure(s): XR elbow RT min 3V Accession Number(s): [id number] cc: Sonido Mcdaniels MD Reason for Exam: PAIN EXAMINATION: XR ELBOW 3 VIEWS RIGHT HISTORY: PAIN COMPARISON: There are no prior studies available for comparison. FINDINGS: Three views of the right elbow are submitted. Osseous mineralization is normal. There is no fracture or dislocation. The joint spaces are preserved. The soft tissues are unremarkable. There is no joint effusion. XR/XR elbow RT min 3V IMPRESSION: Unremarkable examination of the right elbow. Electronically signed by: Sonido Diaz MD 09/04/2025 02:08 PM EDT Dictated By: Sonido Diaz MD Signed By: <Electronically signed by Sonido Diaz MD in OV> 09/04/25 1408 DD/ 1349 TD/TT: 09/04/25 1400 Smoking Pipes Cleaner: [address] [address] XRay Report Signed Patient: Trang Massey MR#: [id number] 10 : 1960 Acct:[id number] Age/Sex: 65 / F ADM Date: 09/04/25 Loc: HO.XRAY Attending Dr: Sonido Mcdaniels MD Ordering Physician: Sonido Mcdaniels MD Date of Service: 09/04/25 Procedure(s): XR elb ow RT min 3V Accession Number(s): [id number] cc: Sonido Mcdaniels MD Reason for Exam: PAIN EXAMINATION: XR ELBO W 3 VIEWS RIGHT HISTORY: PAIN COMPARISON: There ar e no prior studies available for comparison. FINDINGS: Three views of the r ight elbow are submitted. Osseous mineralization is normal. There is no fracture or dislocation. The joint spaces are preserved. The soft tissues are unremarkable. There is no joint effusion. X R/XR elbow RT min 3V IMPRESSION: Unremarkable examina tion of the right elbow. Electronically gladis d by: Sonido Diaz MD 09/04/2025 02:08 PM EDT Dictated By: Sonido Diaz MD Signed By: <Matthew icatrice signed by Sonido Diaz MD in OV> 09/04/25 1408 DD/ 1349 TD/TT: 09/04/25 1400 Smoking Pipes Cleaner: REASON FOR VISIT Xr Request Social History Sex Assigned At : Social History Observation Description Sex Assigned At Female Encounters Encounter Location Date Provider Diagnosis Sonido Mcdaniels III, MD [address] [place] [address] [address] [place] [place] [address] 09/04/2025 Sonido Mcdaniels Shoulder pain M25.519 ; Wrist pain M25.539 and Elbow pain, right M25.521 Assessments Encounter Date Diagnosis (ICD Code) Assessment Notes Treatment Notes Treatment Clinical Notes 09/04/2025 Shoulder pain (ICD-10 - M25.519) 09/04/2025 Wrist pain (ICD-10 - M25.539) 09/04/2025 Elbow pain, right (ICD-10 - M25.521) Plan Of Treatment Pending Test Test Name Order Date XR SHOULDER RT 2 VIEWS 09/04/2025 XR wrist RT 2V 09/04/2025 XR elbow RT min 3V 09/04/2025 Next Appt Details Provider Name:Sonido Mcdaniels , 10/30/2025 02:30:00 PM, [address] [place] [address] [address], [place], [address], Provider Name:Sonido Mcdaniels , 08/01/2026 02:00:00 PM, [address] [place] [address] [place], [address], Progress Notes * Sherice MASSEY ADOB: 0 (65 yo F)Acc No.[id number]:09/04/2025 Patient: Katie CAMERONRenetta ManleySherice A :1960 A ge:65 Y S ex:Female Address:[address] [place] [address] [address], [place] [address] Subjective: * Chief Complaints: * X r Request * Medical History: * Surgical History: * Hospitalization/Major Diagno stic Procedure: * Medications: Objective: * Vitals: * Physical Examination: Assessment: * Assessment: 1. S houlder pain - M25.519 2 . W rist pain - M25.539 3 .?Elbow pain, right - M25.521 Plan: * Treatment: 2. W rist pain I maging: XR SHOULDER RT 2 VIEWS I maging: XR wrist RT 2V (Performed Date - 09/04/2025) I maging: XR elbow RT min 3V (Performed Date - 09/04/2025) 3. E lbow pain, right I maging: XR SHOULDER RT 2 VIEWS I maging: XR wrist RT 2V (Performed Date - 09/04/2025) I maging: XR elbow RT min 3V (Performed Date - 09/04/2025) * Procedure Codes: * * Date:
--- OUTSIDE RECORDS SUMMARY | 2025-09-04 16:44 | XMS_ITS | Clinical Summary ---
Author Organization [facility] Address [address] [place] [address] Care Team Providers Care Transportation Security Screener Name Role Phone Sonido Mcdaniels MD Primary Care Provider [phone] Allergies Active Allergy Reactions Criticality Noted Date Comments Codeine Nausea And Vomiting Medium 09/30/2022 Also get a rash Medications Medication Sig Dispensed Refills Start Date End Date Status VITAMIN B COMPLEX-C PO Take 1 tablet by mouth daily. 0 Active pantoprazole (PROTONIX) 20 MG tablet Take 2 tablets (40 mg total) by mouth daily. 0 Active Multiple Vitamin (MULTIVITAMIN ADULT PO) Take by mouth. 0 Active oxyCODONE (ROXICODONE) 5 MG immediate release tablet Take 1 tablet (5 mg total) by mouth every 4 (four) hours as needed for pain. 40 tablet 0 04/24/2023 Active ibuprofen 200 MG tabletIndications:B ack Pain Take 1 tablet (200 mg total) by mouth every 6 (six) hours as needed for pain (back pain). 0 Active azithromycin (ZITHROMAX) 250 MG tablet Take 2 tabs po qd on day 1; then take 1 tab po qd days x 4 days. Take it in combination with other antibiotic. 6 tablet 0 08/21/2023 Active traMADol (ULTRAM) 50 MG tablet Take 50 mg by mouth every 6 (six) hours as needed for pain (may cause drowsiness). 5 tablet 0 10/02/2023 Active Ibuprofen (ADVIL PO) Take by mouth. 0 Active alendronate (FOSAMAX) tablet 70 mg Take 1 tablet (70 mg total) by mouth every 7 days. Take with water on empty stomach/Nothing by mouth and do not lie down for next 30 minutes 0 Active Vitamin D, Cholecalciferol, 50 MCG (1999 UT) CAPS Take by mouth. 0 Ac tive Multiple Vitamins-Minerals (ZINC PO) Take by mouth. Unsure of dosage. 0 Active Dent 250 MG TABS Take by mouth. 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 of right upper lobe of lung 10/04 Cancer Staging:Pathologic: Unsigned Cancer of upper lobe of left lung 10/04/2022 Cancer Staging:Clinical: Unsigned Family History Medical History Relation Name Comments Cancer Father Cancer Mother Relation Name Status Comments Father Mother Social History Tobacco Use Types Packs/Day Years Used Date Smoking Tobacco: Former Cigarettes Q uit: 05/2022 Smokeless Tobacco: Never Tobacco Cessation:Counseling Given: Not Answered Alcohol Use Standard Drinks/Week Comments Yes 0 (1 standard drink = 0.6 oz pur e alcohol) Sex and Gender Information Value Date Recorded Sex Assigned at Female 09/17/2022 2:46 PM EDT Gender Identity Not on file Sexual Orientation Not on file Job Start Date Occupation Industry Not on file Not on file Not on file Last Filed Vital Signs Vital Sign Reading Time Taken Comments Blood Pressure 136/82 12/25/2023 8:10 AM EST Pulse 100 12/25/2023 8:10 AM EST Temperature 36 C (96.8 F) 12/25/2023 8:10 AM EST Respiratory Rate 18 12/25/2023 8:10 AM EST Oxygen Saturation 95% 12/25/2023 8:10 AM EST Inhaled Oxygen Concentration - - Weight 68.4 kg (150 lb 12.7 oz) 12/04/2023 8:06 AM EST Height 175.3 cm (5' 9 ) 12/03/2023 9:22 AM EST Body Mass Index 22.27 12/03/2023 9:22 AM EST Plan of Treatment Health Maintenance Due Date Last Done Comments Hepatitis C Screening 1960 COVID-19 Vaccine (#1) 1965 Pneumococcal Vaccine (1 of 2 - PCV) 1966 Pneumococcal Vaccine (1 of 2 - PCV) 1966 Depression Screening 1972 Preventative Health Evaluation 1978 DTap / Tdap / Td (1 - Tdap) 1979 Shingrix-Zoster Vaccine (1 of 2) 1979 Cervical Cancer Screening (P ap Smear) 1981 Colon Cancer Screening (Colonoscopy) 2005 Breast Cancer Screening (Mammogram) 2010 Fall Risk Assessment 2025 Osteoporosis Screening (DEXA Scan) 2025 Influenza Vaccine (#1) 2025 RSV Adult > 60+ Yrs or Pregn ant (1 - 1-dose 75+ series) 2035 Hepatitis B Vaccines Aged Out No long er eligible based on patient's age to complete this topic RSV Ped < 20 months Aged Out No longe r eligible based on patient's age to complete this topic Care Teams Transportation Security Screener Relationship Specialty Start Date End Date Sonido Mcdaniels MD [facility] [address] [address] PCP - General Oncology 09/30/22
--- OUTSIDE RECORDS SUMMARY | 2025-09-04 16:45 | XMS_ITS ---
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 Past Plans ONCOLOGY TREATMENT Plan Name Start Date Discontinue Date Treatment Medications Discontinue Reason Plan Provider [facility] 07/28/2024 albuterol (PROVENTIL)atezolizumab (TECENTRIQ) infusiondiphenhydrAMINE (BENADRYL)EPINEPHrinefamo tidine (PF) (PEPCID)hydrocortisone (SOLU-CORTEF) IVmeperidine (DEMEROL) 25 MG/MLSaline Flush 0.9 %sodium chloride (NS) 0.9 %sodium chloride 0.9% bolus (NS) Therapy Complete Henna Damian N, DO 17 of 17 cycles started [facility] OP PEMETREXED+CA RBOPLATIN (AUC=6) 022 01/07/2023 albuterol (PROVENTIL)CARBOplatin (PARAPLATIN) chemo infusion (by AUC)cyanocobalamin (VITAMIN B12)dexamethasone (DECADRON)diphenhydrAMINE (BENADRYL)EPINEPHrinefamo tidine (PF) (PEPCID)folic acid (FOLVITE)hydrocortisone (SOLU-CORTEF) IVmeperidine (DEMEROL) 25 MG/MLpalonosetron (ALOXI)PEMEtrexed (ALIMTA) chemo infusionprochlorperazine (COMPAZINE)Saline Flush 0.9 %sodium chloride (NS) 0.9 %sodium chloride 0.9% bolus (NS) Therapy Complete Henna Damian N, DO 3 of 4 cycles started Radiation Treatments * No radiation treatments are documented for this patient in [facility]. Treatments may have been administered in another system.
--- OUTSIDE RECORDS SUMMARY | 2025-09-04 16:46 | XMS_ITS | Encounter Summary ---
Author Organization [facility] Address [address] [place] [address] Care Team Providers Care Behavioral Therapist Name Role Phone Sonido Mcdaniels MD Primary Care Provider [phone] Encounter Details Date Type Department Care Team Description 10/27/2022 [facility] [address] [place] [address] [facility] Social History Tobacco Use Types Packs/Day Years Used Date Smoking Tobacco: Former Cigarettes Q uit: 05/2022 Smokeless Tobacco: Never Alcohol Use Standard Drinks/Week Comments Yes 0 (1 standard drink = 0.6 oz pur e alcohol) Sex and Gender Information Value Date Recorded Sex Assigned at Female 09/17/2022 2:46 PM EDT Gender Identity Not on file Sexual Orientation Not on file Job Start Date Occupation Industry Not on file Not on file Not on file COVID-19 Exposure Response Date Recorded In the last 10 days, have yo u been in contact with someone who was confirmed or suspected to have Coronavirus/COVID-19? No / Unsure 10/27/2022 9:53 AM EST documented as of this encounter Plan of Treatment Not on file documented as of this encounter Visit Diagnoses Not on filedocumented in this encounter Care Teams Behavioral Therapist Relationship Specialty Start Date End Date Sonido Mcdaniels MD [address] [phone] PCP - General Oncology 09/30/22 documented as of this encounter
--- OUTSIDE RECORDS SUMMARY | 2025-09-04 16:47 | XMS_ITS | Patient Health Record ---
Author Organization Sonido Mcdaniels III, MD Address [address] [place] [address] [place] [address] Care Team Providers Care Ict Trainer Name Role Phone Dr. Sonido Mcdaniels III Primary Care Provider Allergies Allergen (clinical drug ingredient) Drug/Non Drug Allergy documented on EMR Reaction Allergy Type Onset Date Status Seasonale Unknown Drug Allergy Active codeine Codeine Sulfate rash Drug Allergy A ctive Results Component Value Reference Range Notes XR wrist RT 2V (Not yet revi ewed by provider) Interpretation: Performing Lab: Notes/Report: [address] [address] XRay Report Signed Patient: Sherice Massey MR#: [id number] 10 : 1960 Acct:[id number] Age/Sex: 65 / F ADM Date: 09/04/25 Loc: HO.XRAY Attending Dr: Sonido Mcdaniels MD Ordering Physician: Sonido Mcdaniels MD Date of Service: 09/04/25 Procedure(s): XR wrist RT 2V Accession Number(s): [id number] cc: Sondio Mcdaniels MD Reason for Exam: PAIN EXAMINATION: [...] Gold Rosen MD 09/04/2025 02:09 PM EDT Dictated By: Gold Rosen MD Signed By: <Electronically signed by Gold Rosen MD in OV> 09/04/25 1409 DD/ 1345 TD/TT: 09/04/25 1400 Stockroom Clerk: [address] [address] XRay Report Signed Patient: Trang Massey MR#: [id number] 10 : 1960 Acct:[id number] Age/Sex: 65 / F ADM Date: 09/04/25 Loc: HO.XRAY Attending Dr: Sonido Mcdaniels MD Ordering Physician: Sonido Mcdaniels MD Date of Service: 09/04/25 Procedure(s): XR wrist RT 2V Accession Number(s): [id number] cc: Sonido Mcdaniels MD Reason for Exam: [...] By: Gold Rosen MD Signed By: <Electron ically signed by Gold Rosen MD in OV> 09/04/25 1409 DD/ 1345 TD/TT: 09/04/25 1400 Stockroom Clerk: XR elbow RT min 3V (Not yet reviewed by provider) Interpretation: Performing Lab: Notes/Report: [address] [address] XRay Report Signed Patient: Sherice Massey MR#: [id number] 10 : 1960 Acct:[id number] Age/Sex: 65 / F ADM Date: 09/04/25 Loc: [facility] Attending Dr: Sonido Mcdaniels MD Ordering Physician: Sonido Mcdaniels MD Date of Service: 09/04/25 Procedure(s): XR elbow RT min 3V Accession Number(s): [id number] cc: Sonido Mcdaniels MD Reason for Exam: [...] Sonido Diaz MD 09/04/2025 02:08 PM EDT RP Dictated By: Sonido Diaz MD Signed By: <Electronically signed by Sonido Diaz MD in OV> 09/04/25 1408 DD/ 1349 TD/TT: 09/04/25 1400 Stockroom Clerk: [address] [address] XRay Report Signed Patient: Trang Massey MR#: [id number] 10 : 1960 Acct:[id number] Age/Sex: 65 / F ADM Date: 09/04/25 Loc: [facility] Attending Dr: Sonido Mcdaniels MD Ordering Physician: Sonido Mcdaniels MD Date of Service: 09/04/25 Procedure(s): XR elb ow RT min 3V Accession Number(s): [id number] cc: Sonido Mcdaniels MD Reason for Exam: [...] Sonido Diaz MD 09/04/2025 02:08 PM EDT RP Dictated By: Sonido Diaz MD Signed By: <Matthew icatrice signed by Sonido Diaz MD in OV> 09/04/25 1408 DD/ 1349 TD/TT: 09/04/25 1400 Stockroom Clerk: XR lumbar spine 2-3V Reviewed date:02/11/2025 08:18:16 AM Interpretation: Performing Lab: Notes/Report: [address] [address] XRay Report Signed Patient: Sherice Massey MR#: [id number] 10 : 1960 Acct:[id number] Age/Sex: 64 / F ADM Date: 12/26/24 Loc: HO.XRAY Attending Dr: Sonido Mcdaniels MD Ordering Physician: Sonido Mcdaniels MD Date of Service: 12/26/24 Procedure(s): XR lumbar spine 2-3V Accession Number(s): [id number] cc: Sonido Mcdaniels MD EXAMINATION: XR LUMBOSACRAL SPINE CLINICAL INFORMATION: DEGENERATIVE DISC DISEASE, LUMBAR BACK PAIN COMPARISON: None available. TECHNIQUE: Three views of the lumbosacral spine. FINDINGS: Mild to moderate levoconvex scoliosis, apex at L3. Straightening of the normal lordosis. Diffuse osteopenia suspected. No fracture, compression deformity, or suspicious bone lesion. Severe disc degeneration with sclerosis of the endplates spanning L3-S1. Associated facet degeneration at these levels. Surgical anastomotic sutures in the central pelvis. Surgical clip overlying the left sacral wing. Vascular calcifications diffusely. XR/XR lumbar spine 2-3V IMPRESSION: 1. Mild to moderate levoconvex scoliosis, and advanced multilevel lumbar spondylosis most significant L3-S1. Electronically signed by: Gold Rosen MD 12/26/2024 04:15 PM EST RP Dictated By: Gold Rosen MD Signed By: <Electronically signed by Gold Rosen MD in OV> 12/26/241614 DD/ 153 TD/TT: 12/26/24 160 Stockroom Clerk: [place] [address] XRay Report Signed Patient: Trang Massey MR#: [id number] 10 : 1960 Acct:[id number] Age/Sex: 64 / F ADM Date: 12/26/24 Loc: HO.XRAY Attending Dr: Sonido Mcdaniels MD Ordering Physician: Sonido Mcdaniels MD Date of Service: 12/26/24 Procedure(s): XR lum bar spine 2-3V Accession Number(s): [id number] cc: Sonido Mcdaniels MD EXAMINATION: XR LUMBOSACRAL SPINE CLINICAL INFORMATION: DEGENERATIVE DISC DI SEASE, LUMBAR BACK PAIN COMPARISON: None available. TECHNIQUE: Three views of the l umbosacral spine. FINDINGS: Mild to moderate lev oconvex scoliosis, apex at L3. Straightening of the normal lordosis. Diffuse osteopenia suspected. No fracture, jennifer brenda deformity, or suspicious bone lesion. Severe disc degenera tion with sclerosis of the endplates spanning L3-S1. Associated fa cet degeneration at these levels. Surgical anastomotic sutures in the central pelvis. Surgical clip overlying the left s acral wing. Vascular calcifications diffusely. X R/XR lumbar spine 2-3V IMPRESSION: 1. Mild to moderate levoconvex scoliosis, and advanced multilevel lumbar spondylosis m ost significant L3-S1. Electronically gladis d by: Gold Rosen MD 12/26/2024 04:15 PM EST RP Dictated By: Gold Rosen MD Signed By: <Electron etta signed by Gold Rosen MD in OV> 12/26/241614 DD/ 1536 TD/TT: 12/26/24 1607 Stockroom Clerk: XR sacrum coccyx min 2V Reviewed date:02/11/2025 08:18:16 AM Interpretation: Performing Lab: Notes/Report: [address] [address] XRay Report Signed Patient: Sherice Massey MR#: [id number] 10 : 1960 Acct:[id number] Age/Sex: 64 / F ADM Date: 12/26/24 Loc: HO.XRAY Attending Dr: Sonido Mcdaniels MD Ordering Physician: Sonido Mcdaniels MD Date of Service: 12/26/24 Procedure(s): XR sacrum coccyx min 2V Accession Number(s): [id number] cc: Sonido Mcdaniels MD EXAMINATION: XR SACRUM AND COCCYX CLINICAL INFORMATION: DEGENERATIVE DISC DISEASE, LOW BACK PAIN COMPARISON: None available. TECHNIQUE: 2 views of the sacrum and 2 views of the coccyx were obtained. FINDINGS: No definite fractures or acute bony abnormalities. There may be an old distal sacral fracture. Sacrum and sacral arches appear intact. Limited evaluation of the coccyx due to extreme anatomic variability in this region. Degenerative changes in both SI joints. Advanced degenerative changes lower lumbar spine. Compression screws in the right femoral head. There are surgical anastomotic clips in the central pelvis, and surgical clips overlying the left sacrum. There are vascular calcifications present. XR/XR sacrum coccyx min 2V IMPRESSION: 1. No acute bony abnormalities. Limited evaluation of the coccyx due to extreme anatomic variability in this region. 2. Significant degenerative changes bilateral SI joints, lower lumbar spine. Electronically signed by: Gold Rosen MD 12/26/2024 04:13 PM [facility] Dictated By: Gold Rosen MD Signed By: <Electronically signed by Gold Rosen MD in OV> 12/26/24 1613 DD/ 1536 TD/TT: 12/26/24 1607 Stockroom Clerk: [address] [address] XRay Report Signed Patient: Trang Massey MR#: [id number] 10 : 1960 Acct:[id number] Age/Sex: 64 / F ADM Date: 12/26/24 Loc: HO.XRAY Attending Dr: Sonido Mcdaniels MD Ordering Physician: Sonido Mcdaniels MD Date of Service: 12/26/24 Procedure(s): XR sac rum coccyx min 2V Accession Number(s): [id number] cc: Sonido Mcdaniels MD EXAMINATION: XR SACRUM AND COCCYX CLINICAL INFORMATION: DEGENERATIVE DISC DI SEASE, LOW BACK PAIN COMPARISON: None available. TECHNIQUE: 2 views of the sacru m and 2 views of the coccyx were obtained. FINDINGS: No definite fracture s or acute bony abnormalities. There may be an old distal sacral fracture. Sacrum and sacral ar ches appear intact. Limited evaluation of the coccyx due to extrem e anatomic variability in this region. Degenerative changes in both SI joints. Advanced degenerativ e changes lower lumbar spine. Compression screws i n the right femoral head. There are surgical a nastomotic clips in the central pelvis, and surgical clips overl frank the left sacrum. There are vascular calcifications present. X R/XR sacrum coccyx min 2V IMPRESSION: 1. No acute bony abn ormalities. Limited evaluation of the coccyx due to extreme anatomic manuel iability in this region. 2. Significant degen erative changes bilateral SI joints, lower lumbar spine. Electronically gladis d by: Gold Rosen MD 12/26/2024 04:13 PM [facility] Dictated By: Gold Rosen MD Signed By: <Matthew [facility] signed by Gold Rosen MD in OV> 12/26/24 1613 DD/ 1536 TD/TT: 12/26/24 1607 Stockroom Clerk: XR shoulder RT min 2V (Not y et reviewed by provider) Interpretation: Performing Lab: Notes/Report: [address] [address] XRay Report Signed Patient: Sherice Massey MR#: [id number] 10 : 1960 Acct:[id number] Age/Sex: 65 / F ADM Date: 09/04/25 Loc: HO.XRAY Attending Dr: Sonido Mcdaniels MD Ordering Physician: Sonido Mcdaniels MD Date of Service: 09/04/25 Procedure(s): XR shoulder RT min 2V Accession Number(s): [id number] cc: Sonido Mcdaniels MD Reason for Exam: PAIN EXAMINATION: XR SHOULDER 2 OR MORE VIEWS RIGHT HISTORY: PAIN COMPARISON: Comparison is made with the prior examination dated 11/25/2020. FINDINGS: Five views of the right shoulder are submitted. Osseous mineralization is normal. There is a nondisplaced fracture of the greater tuberosity. There is no dislocation. The glenohumeral joint is maintained. There is moderate osteoarthritis of the AC joint, with joint space narrowing and osteophyte formation. The soft tissues are unremarkable. XR/XR shoulder RT min 2V IMPRESSION: Nondisplaced fracture of the greater tuberosity of the humerus. Please correlate with trauma history. If there is no history of trauma, MRI is suggested to evaluate for a pathologic fracture. Electronically signed by: Sonido Diaz MD 09/04/2025 02:12 PM EDT Dictated By: Sonido Diaz MD Signed By: <Electronically signed by Sonido Diaz MD in OV> 09/04/25 1412 DD/ 1351 TD/TT: 09/04/25 1400 Stockroom Clerk: [place] [address] XRay Report Signed Patient: Trang Massey MR#: [id number] 10 : 1960 Acct:[id number] Age/Sex: 65 / F ADM Date: 09/04/25 Loc: HO.[facility] Attending Dr: Sonido Mcdaniels MD Ordering Physician: Sonido Mcdaniels MD Date of Service: 09/04/25 Procedure(s): XR kathrine ulder RT min 2V Accession Number(s): [id number] cc: Sonido Mcdaniels MD Reason for Exam: PAIN EXAMINATION: XR SHOU LDER 2 OR MORE VIEWS RIGHT HISTORY: PAIN COMPARISON: Comparis on is made with the prior examination dated 11/25/2020. FINDINGS: Five views of the ri ght shoulder are submitted. Osseous mineralization is normal. There is a nondisplaced fracture of the greater tuberosity. There is no dislocat ion. The glenohumeral joint is maintained. There is moderate osteoart hritis of the AC joint, with joint space narrowing and osteophyte forma tion. The soft tissues are unremarkable. X R/XR shoulder RT min 2V IMPRESSION: Nondisplaced fractur e of the greater tuberosity of the humerus. Please correlate with traum a history. If there is no history of trauma, MRI is suggested to evaluat e for a pathologic fracture. Electronically gladis d by: Sonido Diaz MD 09/04/2025 02:12 PM EDT RP Dictated By: Sonido Diaz MD Signed By: <Matthew quiles signed by Sonido Diaz MD in OV> 09/04/25 1412 DD/ 1351 TD/TT: 09/04/25 1400 Stockroom Clerk: Reason For Referral Reason Consult and Treat Diagnosis 1 Degenerative disc di sease, lumbar (M51.36) Diagnosis 2 Lumbar back pain (M5 4.50) Referral Organization Sonido Mcdaniels III, MD Referring Provider First Name Sonido Referring Provider Last Name Arslan Referring Provider Speciality Internal M edicine Referred Provider [facility], Pain Management Referred Provider Specialty Pain Medicin e General Notes 10/24/2024 11:53:51 AM > Referral and progress note faxed. Xr will be faxed when it comes available, 11/10/2024 03:41:35 PM > Patient was contacted by the office with no success, letter was mailed to patient to contact they office to schedule an appointment. Patient was also contacted by Dr. Mcdaniels's office and left a voicemail to call the office back for status of the need of the referral, 12/07/2024 10:13:17 AM > Reached out to patient regarding referral left message for her to contact the office. Patient stated she has not had the Xr done yet and is waiting to have the Xr done to call and schedule with them. Patient will make us aware of when the appointment will be, 02/02/2025 04:19:19 PM > Patient was contacted by the office by phone and by mail. Patient has not reached back out to their office., Sindhu 02/14/2025 11:04:29 AM > Patient stated she does not wish to go to pain management. Referral being closed Referral Priority Routine Reason Due for Colonoscopy Consult and Treat Diagnosis 1 Screen for colon can cer (Z12.11) Referral Organization Sonido Mcdaniels III, MD Referring Provider First Name Sonido Referring Provider Last Name Arslan Referring Provider Speciality Internal M edicine Referred Provider IVANNA WHELAN Referred Provider Specialty Gastroentero logy General Notes Kaylene Manley 08/02/2025 10:43:59 AM > referral faxed with progress note Referral Priority Routine Medications Medication SIG (Take, Route, Frequency, Duration) Notes Start Date End Date Status Pantoprazole Sodium 20 MG 1 tablet Orall y Once a day Active Atezolizumab 840 MG/14ML as directed Intravenous Active Vitamin B Complex - Orally Active Alendronate Sodium 70 MG TAKE 1 TABLET B Y MOUTH ONCE A WEEK 30 MINUTES BEFORE THE FIRST FOOD, BEVERAGE OR MEDICATION OF THE DAY WITH PLAIN WATER. Active oxyCODONE HCl 5 MG 1 tablet as needed O rally every 6 hrs 02/18/2024 Active Vitamin D 50 MCG (1999 UT) 1 tablet Oral ly Once a day Active Advil 200 MG 1 tablet with food o r milk as needed Orally Three times a day Active Acetaminophen 325 MG 1 tablet as needed Orally every 6 hrs 02/18/2024 Active Calcium 500 bid Active Ondansetron HCl 8 MG 1 tablet if needed Orally four times a day for 7 days 08/31/2025 Active Immunizations Vaccine Route Administration Date Status Comme nts COVID 19 Shantel Unknown 04/25/2021 Administered COVID 19 Shantel Unknown 11/20/2021 Administered Flu-IIv4pf Unknown 01/19/2024 Administered Flu-IIv4pf Unknown 09/14/2020 Administered Hepatitis B (20 and more) Unknown 06/20/2019 Administer ed Social History Tobacco Use: Social History Observation [...] Problem Status W/U Status Risk Notes Problem 9796811 Former smoker (Z87.891) Active confirmed She has a plan to prevent relapse in times of stress and illness. Problem Hepatitis C (45594603) Hepatitis C (B19.20) Active confirmed This disorder is not currently present but was in the past. Problem 415839711 Underweight (R63.6) Active confirmed She has lost weight and her BMI is now in the underweight range. We discussed her diet and nutrition at length today.Her thyroid function tests will be monitored. Problem 58119866 Intramural leiomyoma of uterus (D25.1) Active confirmed She has been referred to [facility] for management of her reproductive health. Problem Hypothyroidism (75748673) Hypothyroidism , unspecified (E03.9) Active confirmed She has been euthyroid. Comprehensive blood work with thyroid function tests have been ordered prior to her next visit. No change in her regimen has beenn made. Problem Vitamin D deficiency (98674362) Vitamin D deficiency, unspecified (E55.9) Active confirmed Problem 25029493 Age-related osteoporosis without current pathological fracture (M81.0) Active confirmed She is currently taking vitamin D and calcium. I have added alendronate. Problem 66559674 Chronic obstructive pulmonary disease, unspecified COPD type (J44.9) Active confirmed She is currently comfortable breathing room air. Her COPD is controlled. She is up-to-date with her pulmonary physician. Problem 379196019 Non-small cell cancer of right lung (C34.91) Active confirmed There was no sign of either the [...] be free of malignancy at this time. Problem 338153449 Non-small cell carcinoma of left lung (C34.92) Active confirmed The scars are well healed. There is no sign of disease recurrence. She is breathing comfortably. Problem 312692164 Port-a-cath in place (Z95.828) Active confirmed The port was flushed with heparin and saline. It functioned well. Problem 605161521 History of depression (Z86.59) Active confirmed She does not appear depressed today. She'll be observed carefully for recurrence. Problem 50794819 Degenerative disc disease, lumbar (M51.36) Active confirmed She reports her back pain has been better. There was limitation of range of motion of the lumbar spine with some muscle spasm. She will use heat and rest ibuprofen. She was referred to physical therapy and pain management. Problem 312771022 Macrocytosis without anemia (D75.89) Active confirmed Her mean cell volume is now 107 with a hematocrit of 45%. This will be investigated again. She is not anemic but may have a maturation delay.She will have vitamin B12 and folic acid and reticulocytes. 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 This was performed today. A pelvic examination and Pap smear rectal examination were done in the office. There are no significant findings. Problem 444675058 Post-thoracoto my pain (G89.12) Active confirmed The pain has resolved Problem 697446796800 S/P total right hip arthroplasty (Z96.641) Active confirmed Her right hip was replaced in January of this year. She is able to walk with only a cane now. She is progressing slowly with home physical therapy. Vital Signs Heart Rate 90 /min 07/31/2025 Temperature 98.1 degrees Fahrenheit 07/31/2025 Blood pressure diastolic 86 mm Hg 07/31/2025 Height 69 in 07/31/2025 Blood pressure systolic 134 mm Hg 07/31/2025 Weight 134 lbs 07/31/2025 BMI 19.79 kg/m2 07/31/2025 Encounters Encounter Location Date Provider Diagnosis Sonido Mcdaniels III, MD [address] [place] [address] [place] [address] 10/17/2024 Sonido Mcdaniels Degenerative disc disease, lumbar M51.36 ; Port-a-cath in place Z95.828 ; Lumbar back pain M54.50 ; History of depression Z86.59 ; Macrocytosis without anemia D75.89 ; Non-small cell cancer of right lung C34.91 ; Age-related osteoporosis without current pathological fracture M81.0 ; Former smoker Z87.891 and S/P total right hip arthroplasty Z96.641 Sonido Mcdaniels III, MD [address] [place] [address] [place] [address] 12/26/2024 Sonido Mcdaniels Port-a-cath in place Z95.828 ; Non-small cell cancer of right lung C34.91 ; Degenerative disc disease, lumbar M51.36 ; History of depression Z86.59 ; Macrocytosis without anemia D75.89 ; Former smoker Z87.891 ; Post-thoracotomy pain G89.12 and Age-related osteoporosis without current pathological fracture M81.0 Sonido Mcdaniels III, MD [address] [place] [address] [place] [address] 02/13/2025 Sonido Mcdaniels Degenerative disc disease, lumbar [...] ; Underweight R63.6 and Weight loss R63.4 Sonido Mcdaniels III, MD [address] [place] [address] [place] [address] 03/28/2025 Sonido Mcdaniels Degenerative disc disease, lumbar M51.36 ; Non-small cell carcinoma of left lung C34.92 ; History of depression Z86.59 ; Macrocytosis without anemia D75.89 ; Non-small cell cancer of right lung C34.91 ; Post-thoracotomy pain G89.12 ; Hypothyroidism, unspecified E03.9 ; Age-related osteoporosis without current pathological fracture M81.0 ; Former smoker Z87.891 and Port-a-cath in place Z95.828 Sonido Mcdaniels III, MD [address] [place] [address] [place] [address] 07/31/2025 Sonido Mcdaniels Degenerative disc disease, lumbar M51.36 ; Non-small cell cancer of right lung C34.91 ; High risk HPV infection B97.7 ; Intramural leiomyoma of uterus D25.1 ; History of depression Z86.59 ; Non-small cell carcinoma of left lung C34.92 ; Macrocytosis without anemia D75.89 ; Post-thoracotomy pain G89.12 ; Port-a-cath in place Z95.828 ; Former smoker Z87.891 and Underweight R63.6 Sonido Mcdaniels III, MD [address] [place] [address] [place] [address] 01/18/2025 Sonido Mcdaniels III, MD [address] [place] [address] [place] [address] 09/04/2025 Sonido Mcdaniels Shoulder pain M25.51 9 ; Wrist pain M25.539 and Elbow pain, right M25.521 Sonido Mcdaniels III, MD [address] [place] [address] [place] [address] 02/09/2025 Sonido Mcdaniels III, MD [address] [place] [address] [place] [address] 08/31/2025 Sonido Mcdaniels III, MD [address] [place] [address] [place] [address] 08/31/2025 Sonido Mcdaniels III, MD [address] [place] [address] [place] [address] 09/01/2025 Sonido Mcdaniels Assessments Encounter Date Diagnosis (ICD Code) Assessment Notes Treatment Notes Treatment Clinical Notes 10/17/2024 Port-a-cath in place (ICD-10 - Z95.828) The port was flushed with heparin and saline. It functioned well. 10/17/2024 Degenerative disc disease, lumbar (ICD-10 - M51.36) She reports her back pain has become more severe. There was limitation of range of motion of the lumbar spine with some muscle spasm. She will use heat and rest ibuprofen. She was referred to physical therapy and pain management. X-rays will be requested. 12/26/2024 Non-small cell cancer of right lung (ICD-10 [...] be free of malignancy at this time. 12/26/2024 Port-a-cath in place (ICD-10 - Z95.828) The port was flushed with heparin and saline. It functioned well. 02/13/2025 Chronic obstructive pulmonary disease, unspecified COPD type (ICD-10 - J44.9) She is currently comfortable breathing room air. Her COPD is controlled. She is up-to-date with her pulmonary physician. 02/13/2025 Degenerative disc disease, lumbar (ICD-10 - [...] disease recurrence. She is breathing comfortably. 03/28/2025 Degenerative disc disease, lumbar (ICD-10 - M51.36) She reports her back pain has beenbetter. There was limitation of range of motion of the lumbar spine with some muscle spasm. She will use heat and rest ibuprofen. She was referred to physical therapy and pain management. X-rays will be requested. 07/31/2025 Non-small cell cancer of right lung [...] free of malignancy at this time. 07/31/2025 Degenerative disc disease, lumbar (ICD-10 - M51.36) She reports her back pain has been better. There was limitation of range of motion of the lumbar spine with some muscle spasm. She will use heat and rest ibuprofen. She was referred to physical therapy and pain management. 09/04/2025 Shoulder pain (ICD-10 - M25.519) 10/17/2024 Lumbar back pain (ICD-10 - M54.50) For now she will continue to use a combination of heat and rest and acetaminophen and ibuprofen. 12/26/2024 Degenerative disc disease, lumbar (ICD-10 - M51.36) She reports her back pain has become more severe. There was limitation of range of motion of the lumbar spine with some muscle spasm. She will use heat and rest ibuprofen. She was referred to physical therapy and pain management. X-rays will be requested. 02/13/2025 High risk HPV infection (ICD-10 - B97.7) She has not been to the [facility] and she has not had a recent Pap smear. This was performed today. A pelvic examination and Pap smear rectal examination were done in the office. There are no significant findings. 03/28/2025 History of depression (ICD-10 - Z86.59) She does not appear depressed today. She'll be observed carefully for recurrence. 07/31/2025 High risk HPV infection (ICD-10 - B97.7) She has not been to the [facility] and she has not had a recent Pap smear. This was performed today. A pelvic examination and Pap smear rectal examination were done in the office. There are no significant findings. 09/04/2025 Wrist pain (ICD-10 - M25.539) 10/17/2024 History of depression (ICD-10 - Z86.59) She does not appear depressed today. She'll be observed carefully for recurrence. 12/26/2024 History of depression (ICD-10 - Z86.59) She does not appear depressed today. She'll be observed carefully for recurrence. 02/13/2025 History of depression (ICD-10 - Z86.59) She does not appear depressed today. She'll be observed carefully for recurrence. 03/28/2025 Macrocytosis without anemia (ICD-10 - D75.89) Her mean cell volume is now 107 with a hematocrit of 45%. This will be investigated again. She is not anemic but may have a maturation delay.She will have vitamin B12 and folic acid and reticulocytes. 07/31/2025 Intramural leiomyoma of uterus (ICD-10 - D25.1) She has been referred to [facility] for management of her reproductive health. 09/04/2025 Elbow pain, right (ICD-10 - M25.521) 10/17/2024 Macrocytosis without anemia (ICD-10 - D75.89) Her mean cell volume is now 107 with a hematocrit of 45%. This will be investigated again. She is not anemic but may have a maturation delay.She will have vitamin B12 and folic acid and reticulocytes. 12/26/2024 Macrocytosis without anemia (ICD-10 - D75.89) Her mean cell volume is now 107 with a hematocrit of 45%. This will be investigated again. She is not anemic but may have a maturation delay.She will have vitamin B12 and folic acid and reticulocytes. 02/13/2025 Macrocytosis without anemia (ICD-10 - D75.89) [...] free of malignancy at this time. 07/31/2025 History of depression (ICD-10 - Z86.59) She does not appear depressed today. She'll be observed carefully for recurrence. 10/17/2024 Non-small cell cancer of right lung (ICD-10 [...] be free of malignancy at this time. 12/26/2024 Former smoker (ICD-10 - Z87.891) She has a plan to prevent relapse in times of stress and illness. 02/13/2025 Age-related osteoporosis without current pathological fracture (ICD-10 - M81.0) She is currently taking vitamin D and calcium. I have added alendronate. 03/28/2025 Post-thoracotomy pain (ICD-10 - G89.12) The pain has resolved 07/31/2025 Non-small cell carcinoma of left lung (ICD-10 - C34.92) The scars are well healed. There is no sign of disease recurrence. She is breathing comfortably. 10/17/2024 Age-related osteoporosis without current pathological fracture (ICD-10 - M81.0) She is currently taking vitamin D and calcium. I have added alendronate. 12/26/2024 Post-thoracotomy pain (ICD-10 - G89.12) The pain has resolved 02/13/2025 Former smoker (ICD-10 - Z87.891) She has a plan to prevent relapse in times of stress and illness. 03/28/2025 Hypothyroidism, unspecified (ICD-10 - E03.9) She has been euthyroid. Comprehensive blood work with thyroid function tests have been ordered prior to her next visit. No change in her regimen has beenn made. 07/31/2025 Macrocytosis without anemia (ICD-10 - D75.89) Her mean cell volume is now 107 with a hematocrit of 45%. This will be investigated again. She is not anemic but may have a maturation delay.She will have vitamin B12 and folic acid and reticulocytes. 10/17/2024 Former smoker (ICD-10 - Z87.891) She has a plan to prevent relapse in times of stress and illness. 12/26/2024 Age-related osteoporosis without current pathological fracture (ICD-10 - M81.0) She is currently taking vitamin D and calcium. I have added alendronate. 02/13/2025 Non-small cell cancer of right lung [...] free of malignancy at this time. 03/28/2025 Age-related osteoporosis without current pathological fracture (ICD-10 - M81.0) She is currently taking vitamin D and calcium. I have added alendronate. 07/31/2025 Post-thoracotomy pain (ICD-10 - G89.12) The pain has resolved 10/17/2024 S/P total right hip arthroplasty (ICD-10 - Z96.641) Her right hip was replaced in January of this year. She is able to walk with only a cane now. She is progressing slowly with home physical therapy. 02/13/2025 S/P total right hip arthroplasty (ICD-10 - Z96.641) Her right hip was replaced in January of this year. She is able to walk with only a cane now. She is progressing slowly with home physical therapy. 03/28/2025 Former smoker (ICD-10 - Z87.891) She has a plan to prevent relapse in times of stress and illness. 07/31/2025 Port-a-cath in place (ICD-10 - Z95.828) The port was flushed with heparin and saline. It functioned well. 02/13/2025 Hypothyroidism, unspecified (ICD-10 - E03.9) She has been euthyroid. Comprehensive blood work with thyroid function tests have been ordered prior to her next visit. No change in her regimen has beenn made. 03/28/2025 Port-a-cath in place (ICD-10 - Z95.828) The port was flushed with heparin and saline. It functioned well. 07/31/2025 Former smoker (ICD-10 - Z87.891) She has a plan to prevent relapse in times of stress and illness. 02/13/2025 Port-a-cath in place (ICD-10 - Z95.828) The port was flushed with heparin and saline. It functioned well. 07/31/2025 Underweight (ICD-10 - R63.6) She has lost weight and her BMI is now in the underweight range. We discussed her diet and nutrition at length today.Her thyroid function tests will be monitored. 02/13/2025 Underweight (ICD-10 - R63.6) She has [...] for recurrent lung cancer. Plan Of Treatment Pending Test Test Name Order Date PROFILE, FASTING (COMPREHENSIVE METABOLI C) 06/08/2019 PROFILE, FASTING (COMPREHENSIVE METABOLI C) 07/31/2025 PROFILE, FASTING (COMPREHENSIVE METABOLI C) 2024 PROFILE, RANDOM (COMPREHENSIVE METABOLIC ) 03/28/2024 PROFILE, RANDOM (COMPREHENSIVE METABOLIC ) 08/01/2024 LIPID PANEL 06/08/2019 LIPID PANEL 08/24/2018 TSH (THYROID STIMULATING HORMONE) 2023 TSH (THYROID STIMULATING HORMONE) 2023 CBC w DIFF 03/28/2024 CBC w DIFF 08/24/2018 CBC w DIFF 07/31/2025 CBC w DIFF 08/01/2024 HEPATITIS B, C PROFILE 08/24/2018 HIV AG/AB 08/24/2018 PAP SMEAR (THIN PREP) 11/07/2019 XR SHOULDER RT 2 VIEWS 09/04/2025 CBC WITH AUTO DIFF 2024 RETIC 08/01/2024 Lipid Panel 2024 Lipid Panel 07/31/2025 Vitamin B12 and Folate 08/01/2024 Vitamin D 25-OH Total 07/31/2025 Free T4 (Free Thyroxine) 2024 Thyroxine T4 Total 03/28/2024 XR wrist RT 2V 09/04/2025 XR shoulder RT min 2V 09/04/2025 XR elbow RT min 3V 09/04/2025 Next Appt Details Provider Name:Sonido Mcdaniels , 10/30/2025 02:30:00 PM, [address] [place] [address] [address], [place], [id number], Provider Name:Sonido Mcdaniels , 08/01/2026 02:00:00 PM, [address] [place] [address] [address], [place], [id number], Insurance Providers Payer Name Payer Address Payer Phone Subscriber Number Group Number Insured Name Patient Relationship to Insured Coverage Start Date Coverage End Date [employer] [place] [address] [address] [place] [phone] [id number] 1 Sherice Massey Self - patient is the insured Medical (General) History Medical History History ICD Code Lumbar disc disease M51.9 history of diverticulitis 2008, Dr. Mariya Stover dental extractions in progress 2016 positive HPV depression anxiety history of IVDU history of viral hepatitis ovarian cysts uterine fibroids history of Nabothian cyst history of bleeding hemorrhoids family history of colon cancer depression. 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 [id number] adenocarcinoma left upper lobe J víctor 2021 T11 compression fracture April 2023 01/18/2024 right hip [place] [facility] [place] Yared MAYES former smoker Fractured Back - Occurred du ring chemotherapy in 2022, Broken Ribs - Not Discussed, Right Hip Replacement - Not Discussed Lung Cancer, Back Pain Surgical History Surgery Date(Month/Year) No history Right hip replacement - not discussed Left upper lobe wedge resection non-smal l cell carcinoma October 2023 right hip nailling [place] [facility] [place] Yared MAYES, Intertrochanteric fracture 01/18/2024 Resection adenocarcinoma, right upper lo be 06/10/2021 colonoscopy, [facility], Dr. Adams, hematochezia, negative 2001 dental extractions in progress 2017 colonoscopy, one hyperplastic polyp, Dr. Stover 02/2011 laparoscopic surgery for diverticulitis, 01/2009 Hospitalization History Reason Date(Month/Year) No history right hip replacement [place] [facility] [place] 01/18/2024 Resection adenocarcinoma, left upper lob e 06/10/2022 resection spiculated lung le brenda right upper lobe [facility] 01/2021 rib fracture 11/2020 Bilateral lung Nodule 11/2020 FLU 9 days 01/2019
== END 2025-09-04 13:36 | disposition home or self-care (01) ==
LOC: HO.XRAY 13:35
PROVIDERS: PCP Internal Medicine Medical Oncology; Visit Provider Internal Medicine Medical Oncology
DX: M25.521 Pain in right elbow (principal); M25.511 Pain in right shoulder; M25.531 Pain in right wrist
CPT/HCPCS: 73030; 73080; 73100

== ENCOUNTER → 2025-09-04 13:41 | Outpatient (BNV) | payer OTHER, SELFPAY | PROVIDERS: PCP Internal Medicine Medical Oncology; Visit Provider Radiology Diagnostic Radiology | DX: S42.254A Nondisplaced fracture of greater tuberosity of right humerus, initial encounter for closed fracture (principal); M25.521 Pain in right elbow; M18.11 Unilateral primary osteoarthritis of first carpometacarpal joint, right hand | CPT/HCPCS: 73030; 73080; 73100 ==